=== PATIENT | female | born 1950 | race Caucasian/White ===

== ENCOUNTER 2023-04-01 14:58 | Outpatient (AMB) | payer MEDICARE, SELFPAY ==
[2023-04-01 15:02] VITALS: BP 120/70; PULSE 102; RESP 12; TEMP 36.4; O2SAT 99; BMI 28.5
--- NOTE | 2023-04-01 15:02 | MHC.PC.OV ---
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: No Accompanied by: Self / Same As Patient Allergies No Known Allergies Allergy (Verified 04/01/23 15:10) Tobacco use date assessed: 04/01/23 Fall risk assessment: No Falls in past year Last assessed Fall Risk: 04/01/23 Dental Screening Dental Screen Date: 04/01/23 Did you have a dental visit in the last 12 months?: Yes Did you have a dental problem in the last 6 months where you did not have access to dental care?: No Was dental information given to patient?: Patient has dentist HPI AIRLINE SECURITY REPRESENTATIVE/Requesting Physical HPI Details New patient Prior PCP: Dr Pinon Last office visit/CPE: 1 month. Acute issue(s): Needs a sleep study; has apneic events, Daytime sleepiness and snoring. Acid Reflux R Base of thumb pain & finkestein sign Positive Memory issues DM: Checks BS when she is worried about low BS PMHx: HTN, DM2 w/ Neuroathy, HLD, TIA. Eosinophilic granuloma L ribs. Diverticulitis 02/2022 with Cardiac arrest after meds. SurgHx: C-sect x 2, Hysterectomy. L Rib resection SocHx: Smoked x 25 yrs ago x 15 yrs. EtOH: None. MJ No. No other drugs PFSH Medical History (Updated 04/01/23 @ 16:23 by Devonte Ferreira MD) Plantar fasciitis Memory loss Hair loss Diabetic neuropathy Wrist pain Shoulder pain Surgical History (Updated 04/01/23 @ 15:29 by Sierra Pagan MA) H/O: hysterectomy Previous section Family History (Updated 04/01/23 @ 15:30 by Sierra Pagan MA) Father High blood pressure High cholesterol Diabetes Brother Tongue cancer Social History Housing: House Patient Tobacco Use Status: Former Tobacco user e-Cigarette/Vaping Use: Never Used service: No Current occupational status: employed and retired Cognitive needs: No Hearing needs: No Vision needs: No Questionnaire PHQ-9 Over the last 2 weeks, how often have you been bothered by any of the following problems? 1. Little interest or pleasure in doing things: several days 2. Feeling down, depressed, or hopeless: not at all 3. Trouble falling or staying asleep, or sleeping too much: several days 4. Feeling tired or having little energy: several days 5. Poor appetite or overeating: not at all 6. Feeling bad about yourself - or that you are a failure or have let yourself or your family down: not at all 7. Trouble concentrating on things, such as reading the newspaper or watching television: not at all 8. Moving or speaking so slowly that other people could have noticed. Or the opposite - being so fidgety or restless that you have been moving around a lot more than usual: not at all 9. Thoughts that you would be better off or of hurting yourself in some way: not at all Total score: 3 Depression Screening Interpretation: Negative Source: Developed by Drs. Jax Kaye, Edith Ahn, Mir Moura and colleagues, with an educational anibal from [employer]. Thrive Questionnaire Date Thrive assessed: 04/01/23 I am a: Patient What is your living situation today?: I have a steady place to live Within the past 12 months, did the food you bought not last and you didn't have the money to get more?: Never true Within the past 12 months, did you worry whether your food would run out before you got money to buy more?: Never true Do you have trouble paying for medicines?: No Do you have trouble getting transportation to medical appointments?: No Do you have trouble paying your heating and electricity bill?: No Do you have trouble taking care of your child, family member or friend?: No Do you have trouble with day-to-day activities such as bathing, preparing meals, shopping, managing finances, etc.?: No Are you currently unemployed and looking for a job?: No Are you interested in more education?: No Please select the resources that you would like help with: None Currently or been in a relationship where the following occur: no concerns reported AUDIT C Alcohol Use Questionnaire (AUDIT-C) 1. How often do you have a drink containing alcohol?: Never 3. How often do you have six or more drinks on one occasion?: Never Total Score: 0 ADAMA-7 AMB Questionnaire ADAMA-7 Date ADAMA - 7 assessed: 04/01/23 Feeling nervous, anxious, or on edge: 0 = Not at all Not being able to stop or control worryin = Not at all Worrying too much about different things: 1 = Several days Trouble relaxin = Several days Being so restless that it is hard to sit still: 0 = Not at all Becoming easily annoyed or irritable: 0 = Not at all Feeling afraid as if something awful might happen: 0 = Not at all Total ADAMA-7 score (0-4 normal; 5-9 mild; 10-14 moderate; 15-21 severe): 2 Source: Developed by Drs. Jax Kaye, Edith Ahn, Mir Moura and colleagues, with an educational anibal from [employer]. Review of Systems Const Denies chills, Reports fatigue, Denies fever(s), Denies headache(s) and Denies weakness ENT Denies dizziness and Denies headache(s) Card Denies chest pain, Denies lightheadedness, Denies dyspnea and Denies other (Palpitations) Resp Denies cough, Denies dyspnea, Denies wheezing and Denies other ( shortness of breath) Musc Denies numbness and Reports tingling Neuro Details: Memory changes. Lower extremity paresthesias and numbness Denies dizziness, Denies headache(s), Denies numbness, Reports tingling, Reports paresthesias and Denies weakness Psych Denies anxiety and Denies depression Endo Reports fatigue and Denies polyuria Aller/Immun Denies wheezing Physical exam (Primary Care) Vital Signs: Last Vital Signs Temp 97.6 F 04/01/23 15:02 Pulse 102 H 04/01/23 15:02 Resp 12 04/01/23 15:02 BP 120/70 04/01/23 15:02 Pulse Ox 99 04/01/23 15:02 Oxygen Delivery Method Room Air 04/01/23 15:02 BMI result Body Mass Index 28.5 Tobacco/Smoking Status: Tobacco use Status Tobacco use date assessed 04/01/23 04/01/23 15:25 Patient Tobacco Use Status Former Tobacco user 04/01/23 15:09 e-Cigarette/Vaping Use Never Used 04/01/23 15:25 PHQ-9: PHQ-9 Score PHQ-9: Total score 3 04/01/23 15:33 Depression Screening Interpretation: Negative Thrive Assessment: Date of Thrive Assessment Date Thrive assessed 04/01/23 04/01/23 15:33 Currently or been in a relationship where the following occur: no concerns reported Const General: no acute distress and well developed Nutritional Appearance: well nourished Orientation/consciousness: patient oriented x3 HENMT Head: Yes normocephalic and Yes atraumatic Eyes General: appearance normal, both eyes and all related structures Pupils: Equal, round and reactive pupils present EOM: EOMs intact bilaterally Resp Effort & Inspection: normal respiratory effort Auscultation: clear to auscultation bilaterally Cardio Rate: regular rate Rhythm: regular rhythm Heart sounds: S1 normal heart sound present, S2 normal heart sound present, no gallops, no murmurs and no rubs Neuro Other: Decreased sensation of feet ankles and lower legs General: patient oriented x3 and gait normal Cranial nerves: Yes Equal, round and reactive pupils present Extrem Other: Right wrist and forearm: Positive Petros sign Psych Affect: normal affect Assessment and Plan Assessment & Plan (1) Essential hypertension: Code(s): I10 - Essential (primary) hypertension Plan: Blood pressure is controlled. Goal is less than 130/80 for patient with history of TIA Continue low-dose of lisinopril (2) Hyperlipidemia: Code(s): E78.5 - Hyperlipidemia, unspecified Plan: She is on atorvastatin and has a history of TIA Check lipids (3) Diabetes mellitus with neuropathy: Code(s): E11.40 - Type 2 diabetes mellitus with diabetic neuropathy, unspecified Plan: Diabetes and patient notes neuropathy She says her last A1c about a month ago was 7.0. Advised her to check her blood sugars in the mornings. We can follow-up on this at her next visit. Patient notes that she eats many carb foods such as bread and pasta. We can address this further at her next visit in she will likely benefit from a referral to the nurse navigator for diabetic teaching. (4) TIA (transient ischemic attack): Code(s): G45.9 - Transient cerebral ischemic attack, unspecified Plan: Continue aspirin and atorvastatin Continue blood pressure control and diabetes control. (5) Memory problem: Code(s): R41.3 - Other amnesia Plan: Has seen neuropsychiatry. They recommended A sleep study which is ordered. She has also had a history of TIA and may have some for vascular changes as well. Continue atorvastatin and aspirin. If worsening will check head CT or MRI. (6) Chronic GERD: Code(s): K21.9 - Gastro-esophageal reflux disease without esophagitis Plan: Trial omeprazole (7) De Quervain's tenosynovitis, right: Code(s): M65.4 - Radial styloid tenosynovitis [de Quervain] Plan: Aspercreme and ice/heat If not improving will refer for injection therapy Orders: Orders Comprehensive [place]. Panel Fast Today Z00.00 - Encounter for general adult medical examination without abnormal findings Lipid Panel Today Z00.00 - Encounter for general adult medical examination without abnormal findings Microalbumin, Random (w Creat) Today I10 - Essential (primary) hypertension UA and rflx microscopic Today Z00.00 - Encounter for general adult medical examination without abnormal findings Vitamin D 25-OH Total Today E55.9 - Vitamin D deficiency, unspecified Complete Blood Count Auto Diff Today Z00.00 - Encounter for general adult medical examination without abnormal findings TSH reflex Free T4 Today Z00.00 - Encounter for general adult medical examination without abnormal findings Referrals Sleep Medicine Referral G47.30 - Sleep apnea, unspecified Coding Level of Care Code New Pt Level 4 (48327) Diagnoses Essential hypertension I10 Hyperlipidemia E78.5 Diabetes mellitus with neuropathy E11.40 TIA (transient ischemic attack) G45.9 Memory problem R41.3 Chronic GERD K21.9 De Quervain's tenosynovitis, right M65.4
== END 2023-04-01 16:19 | disposition home or self-care (01) ==
PROVIDERS: Visit Provider Family Medicine
DX: I10 Essential (primary) hypertension (principal); E11.40 Type 2 diabetes mellitus with diabetic neuropathy, unspecified; K21.9 Gastro-esophageal reflux disease without esophagitis; E78.5 Hyperlipidemia, unspecified; G45.9 Transient cerebral ischemic attack, unspecified; R41.3 Other amnesia; M65.4 Radial styloid tenosynovitis [de Quervain]
CPT/HCPCS: 99214

== ENCOUNTER 2023-06-10 09:53 | Outpatient (AMB) | payer MEDICARE, SELFPAY ==
[2023-06-10 10:01] VITALS: BP 120/76; PULSE 100; O2SAT 97; BMI 28.3
--- NOTE | 2023-06-10 10:01 | MHC.OFFVIS ---
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 Allergies No Known Allergies Allergy (Verified 06/10/23 10:04) HPI HPI Comments History of Present Illness Details 73 y/o female patient presents for new in-person visit for sleep consultation. Pt reports difficulty falling asleep and staying sleep. She tried Zzzquil and melatonin, but not really helpful to have good night sleep. She still fall asleep 3-4 am and wakes up 10 am. She snores, wakes up gasping, and has disrupted sleep with daytime sleepiness. Sleep questionnaire: Have you ever been diagnosed with a sleep disorder? No. Have you ever had a sleep study in the past? No. Have you ever been treated for a sleep disorder? No. Do you take medications for a sleep disorder? Diego, tried melatonin but did not help. Do you snore? Yes. Do you wake up gasping at night? Yes. Do you have episodes of apneas? Yes. If yes, are they witnessed? Yes, her . Do you have episodes of nocturnal chest pain or dyspnea? No. Do you have difficulty initiating sleep? Yes. Do you have difficulty maintaining sleep? Yes. Do you wake up tired? Yes. Do you have headaches upon awakening? No. Do you wake up with dry mouth or throat? Yes. Do you have GERD? Yes. Do you have nocturia? Yes. Do you have nocturnal leg cramps? Yes. Do you have symptoms of restless legs? No. Do you act out your dreams? No. Sleep hygiene questionnaire: What is your usual sleep routine? Usual bedtime is at 10-10:30 am but can fall asleep at 3-4 am; Usual wake up time is at 10 am. Do you take naps? Yes, couple of times a week. Is your sleep environment cool, dark, and quiet? Yes. Do you exercise? No. Do you take caffeine or other stimulants? Tea sometimes. Do you use electronics in bed? No. What is your work schedule? N/A. Hypersomnolence questionnaire: Do you have daytime tiredness or fatigue? Yes. Do you easily fall asleep when inactive? Yes. Have you ever had episodes of sudden weakness? No. Have you ever had episodes of sudden weakness associated with strong emotions? No. PFSH Medical History Plantar fasciitis Memory loss Hair loss Diabetic neuropathy Wrist pain Shoulder pain Surgical History H/O: hysterectomy Previous section Family History Father High blood pressure High cholesterol Diabetes Brother Tongue cancer Social History (Updated 06/10/23 @ 10:06 by Jolene Hawkins MA) Housing: House Alcohol intake: never Patient Tobacco Use Status: Former Tobacco user e-Cigarette/Vaping Use: Never Used service: No Current occupational status: employed and retired Cognitive needs: No Hearing needs: No Vision needs: No Review of Systems Const All systems reviewed & are unremarkable except as noted in HPI and below ENT Reports Normal hearing present Neuro Reports Normal hearing present and Reports Abnormal speech present Physical Exam Vital Signs: Last Vital Signs Pulse 100 06/10/23 10:01 BP 120/76 06/10/23 10:01 Pulse Ox 97 06/10/23 10:01 Oxygen Delivery Method Room Air 06/10/23 10:01 BMI result Body Mass Index 28.3 Const General: cooperative Nutritional Appearance: overweight Orientation/consciousness: patient oriented x3 Neck Neck: Yes full ROM and Yes supple Resp Effort & Inspection: normal respiratory effort and able to speak in complete sentences Neuro General: patient oriented x3 and moves all extremities Cranial nerves: Yes Bilaterally intact EOM present, Yes Normal facial strength present, Yes Midline tongue present, Yes Symmetric palate elevation present, Yes Normal hearing present, Yes Ability to bilaterally rotate head present and Yes Ability to bilaterally elevate shoulders present Cognition (Neuro): normal cognition Speech: Abnormal speech present Gait exam (Neuro): Normal gait present Motor exam (neuro): 5/5 motor strength present throughout, Pronator motor function not present and no tremor noted Psych Appearance: grossly normal Mental Status: mental status grossly normal Speech and movement: Normal speech and movement present Affect: normal affect Attitude: cooperative Assessment & Plan Assessment & Plan (1) Sleep apnea: Code(s): G47.30 - Sleep apnea, unspecified (2) Daytime sleepiness: Code(s): R40.0 - Somnolence Plan Pt is advised to undergo home sleep study to assess for sleep apnea. Will f/u with pt after study to discuss results and appropriate treatment options. Sleep hygiene education provided. Pt to call with any worsening concerns or questions. Orders: Orders RT home sleep study Today G45.9 - Transient cerebral ischemic attack, unspecified, G47.30 - Sleep apnea, unspecified Coding Level of Care Code New Pt Level 3 (13605) Diagnoses Sleep apnea G47.30 Daytime sleepiness R40.0
== END 2023-06-10 10:31 | disposition home or self-care (01) ==
PROVIDERS: PCP Family Medicine; Visit Provider Nurse Practitioner Family
DX: G47.30 Sleep apnea, unspecified (principal); R40.0 Somnolence
CPT/HCPCS: 99203

== ENCOUNTER → 2023-06-10 09:53 | Outpatient (BNVA) | payer MEDICARE, SELFPAY | PROVIDERS: PCP Family Medicine; Visit Provider Nurse Practitioner Family | DX: G47.30 Sleep apnea, unspecified (principal); R40.0 Somnolence | CPT/HCPCS: 99202 ==

== ENCOUNTER 2023-06-20 10:38 | Outpatient (REF) | payer MEDICARE, SELFPAY ==
[2023-06-20 11:42] LABS: MANUAL DIFF FLAG NO
[2023-06-20 12:06] LABS: Basophils Percent Auto 0.5 % (0-2); Eosinophils Absolute Auto 0.3 X10*3/uL (0.0-0.4); Eosinophils Percent Auto 3.2 % (0-4); Hematocrit 42.3 % (37.0-47.0); Hemoglobin 13.9 g/dl (12.0-16.0); Imm Gran Abs Auto 0.02 X10*3/uL (0.00-0.03); Imm Gran Pct Auto 0.3 % (0.0-0.4); Lymphocytes Absolute Auto 1.9 X10*3/uL (1.2-4.9); Lymphocytes Percent Auto 24.4 % (20-40); Mean Corpuscular HGB Conc 32.9 g/dl (31.0-35.0); Mean Corpuscular Hemoglobin 28.9 pg (27.0-33.0); Mean Corpuscular Volume 87.9 fL (80.0-98.0); Mean Platelet Volume 12.1 fL (9.4-12.3); Monocytes Absolute Auto 0.6 X10*3/uL (0.1-1.2); Monocytes Percent Auto 8.1 % (2-11); Neutrophils Percent Auto 63.5 % (45-73); Platelet Count 292 X10*3/uL (160-400); Red Blood Count 4.81 X10*6/uL (4.20-5.50); Red Cell Distribution Width 12.4 % (11.0-16.0); White Blood Count 7.9 X10*3/uL (4.8-10.8)
[2023-06-20 12:31] LABS: Alanine Aminotransferase 29 U/L (0-31); Albumin Level 4.1 g/dL (3.5-5.0); Alkaline Phosphatase 100 U/L (39-117); Anion Gap 9 (12-20); Aspartate Amino Transferase 23 U/L (5-31); Blood Urea Nitrogen 14 mg/dL (9-16); Calcium 9.5 mg/dL (8.4-10.2); Carbon Dioxide 30 mmol/L (22-29); Chloride 101 mmol/L (96-108); Cholesterol 173 mg/dL (<200); Estimated Glomerular Filt Rate > 60; Glucose Fasting 191 mg/dL (60-99); HDL Cholesterol 63 mg/dL (>40); LDL Cholesterol Calculated 79 mg/dL (<100); Potassium 4.1 mmol/L (3.3-5.1); Sodium 136 mmol/L (135-145); Total Protein 7.1 g/dL (6.5-8.0); Triglycerides 155 mg/dL (<150)
[2023-06-20 12:49] LABS: TSH reflex Free T4 1.54 uIU/mL (0.32-4.0); Vitamin D 25-OH Total 30.9 ng/mL (>30)
== END 2023-06-20 10:39 | disposition home or self-care (01) ==
LOC: HO.WFDLDS 10:38
PROVIDERS: Visit Provider Family Medicine
DX: Z00.00 Encounter for general adult medical examination without abnormal findings (principal); E55.9 Vitamin D deficiency, unspecified
CPT/HCPCS: 36415; 80053; 80061; 82306; 84443; 85025

== ENCOUNTER 2023-06-26 10:51 | Outpatient (AMB) | payer MEDICARE, SELFPAY ==
[2023-06-26 11:31] VITALS: BP 118/72; PULSE 85; O2SAT 96; BMI 28.5
--- NOTE | 2023-06-26 11:31 | A.OFFPC_ITS ---
Vital Signs 06/26/23 11:31 Height 5 ft 5 in Weight 171 lb BMI 28.5 BP 118/72 Blood Pressure Location Lt brachial Position Sitting Pulse 85 Pulse Source Pulse Oximeter Pulse Oximetry (%) 96 Oxygen Delivery Method Room Air Intake Visit Reasons: Extended exam with f/u labs and health maint. Intake Note: Patient is here for extended exam, and follow up on labs. Allergies No Known Allergies Allergy (Verified 06/26/23 11:32) Tobacco use date assessed: 06/26/23 Fall risk assessment: No Falls in past year Last assessed Fall Risk: 06/26/23 HPI Extended exam with f/u labs and health maint. HPI Details 73 y/o female presents for an extended e xam with f/u labs and health maintenance. Labs were drawn 06/20/23. Reviewed labs with pt. Elevated fasting glucose of 191. She is on metformin 500mg b.i.d. A1c today 06/26/23 7.3%. She states she does not feel like she can make much changes in her diet. Triglycerides 155. TC 173. LDL 79. HDL 63. Pt reports ongoing complaints of hair loss. She reports last colonoscopy 5-7 years ago. She notes last bone density test more than 2 years ago. [facility] Medical History Plantar fasciitis Memory loss Hair loss Diabetic neuropathy Wrist pain Shoulder pain Surgical History H/O: hysterectomy Previous section Family History Father High blood pressure High cholesterol Diabetes Brother Tongue cancer Social History (Updated 06/10/23 @ 10:06 by Jolene Hawkins MA) Housing: House Alcohol intake: never Patient Tobacco Use Status: Former Tobacco user e-Cigarette/Vaping Use: Never Used service: No Current occupational status: employed and retired Cognitive needs: No Hearing needs: No Vision needs: No Questionnaire Thrive Questionnaire Date Thrive assessed: 04/01/23 ADAMA-7 AMB Questionnaire ADAMA-7 Date ADAMA - 7 assessed: 04/01/23 Source: Developed by Drs. Jax Kaye, Edith Ahn, Mir Moura and colleagues, with an educational anibal from [employer] Review of Systems Const Denies chills, Denies fatigue, Denies fever(s), Denies headache(s) and Denies weakness Eyes Denies change in vision ENT Denies dizziness, Denies headache(s), Denies hearing loss, Denies nasal congestion, Denies sinus pain, Denies sinus pressure and Denies sore throat Card Denies chest pain, Denies lightheadedness, Denies dyspnea and Denies other (palpitations) Resp Denies cough, Denies dyspnea and Denies wheezing GI Denies abdominal pain, Denies melena, Denies hematochezia, Denies change in bowel habits, Denies dyspepsia and Denies nausea Denies hematuria and Denies dysuria Musc Denies abnormal gait, Denies myalgias, Denies arthralgias, Denies numbness and Denies tingling Skin/Breast Denies rash, Denies unusual bruising and Denies wounds Neuro Denies abnormal gait, Denies dizziness, Denies headache(s), Denies memory loss, Denies numbness, Denies Sensory deficit (Neuro), Denies tingling and Denies weakness Psych Denies anxiety, Denies depression and Denies memory loss Endo Denies cold intolerance, Denies fatigue, Denies heat intolerance, Denies polydipsia and Denies polyuria [place]/Lymph Denies easy bleeding and Denies easy bruising Aller/Immun Denies wheezing Physical exam (Primary Care) Vital Signs: Last Vital Signs Pulse 85 06/26/23 11:31 BP 118/72 06/26/23 11:31 Pulse Ox 96 06/26/23 11:31 Oxygen Delivery Method Room Air 06/26/23 11:31 BMI result Body Mass Index 28.5 Tobacco/Smoking Status: Tobacco use Status Tobacco use date assessed 06/26/23 06/26/23 11:34 Patient Tobacco Use Status Former Tobacco user 06/26/23 11:34 e-Cigarette/Vaping Use Never Used 06/26/23 11:34 Thrive Assessment: Date of Thrive Assessment Date Thrive assessed 04/01/23 06/26/23 11:34 Const General: no acute distress, well developed, alert and awake Nutritional Appearance: well nourished Orientation/consciousness: patient oriented x3 HENMT Head: Yes normocephalic and Yes atraumatic Ears: hearing grossly normal bilaterally and TM's normal bilaterally General nose exam: Normal external nose present and Normal nares present Mouth: Normal oral and palatal mucosa present and moist mucous membranes Teeth and gingiva: dentition normal Throat: Yes posterior oropharynx normal Eyes General: appearance normal, both eyes and all related structures Pupils: Equal, round and reactive pupils present and Pupil accommodation reflex normal EOM: EOMs intact bilaterally Neck Neck: Yes normal visual inspection, Yes no lymphadenopathy and Yes trachea midline Thyroid: Thyroid normal Carotids: no bruits Lymphatic: no lymphadenopathy noted Chest Chest palpation & inspection: normal inspection of the chest Resp Effort & Inspection: normal respiratory effort Auscultation: clear to auscultation bilaterally Cardio Rate: regular rate Rhythm: regular rhythm Heart sounds: S1 normal heart sound present, S2 normal heart sound present, no gallops, no murmurs and no rubs Bruits: no abdominal aortic bruits and no carotid bruits GI Palpation (GI): No Abdominal aortic bruit present, Soft to palpation, nontender, No hepatosplenomegaly present and No Rebound tenderness present Auscultation: normal bowel sounds General: Yes no CVA tenderness Back/Spine/Pelvis Back: no CVA tenderness Cervical Spine: cervical ROM normal and No Cervical spine tenderness Thoracic/Lumbar Spine: thoraco-lumbar ROM normal, No pain with thoraco-lumbar ROM, No thoracic spinal tenderness and No lumbar spinal tenderness Skin Lesions: no lesions Rashes: no rashes Trauma: no lacerations or abrasions Wounds: no wounds Nails: normal Neuro General: patient oriented x3 Cranial nerves: Yes Equal, round and reactive pupils present Cognition (Neuro): normal cognition Gait exam (Neuro): Normal gait present Motor exam (neuro): 5/5 motor strength present throughout Sensory Exam: No Sensory deficit (Neuro) Deep tendon reflexes (DTR's): Right patellar reflex intensity grade: 2+ and Left patellar reflex intensity grade: 2+ Extrem General: Yes normal to inspection and No edema Psych Appearance: grossly normal Affect: normal affect Attitude: cooperative Thought process: Normal thought process present Results AMB Hemoglobin A1c AMB Hemoglobin A1c 7.3 % Last Edit by Anastasiya Mcnamara CMA on 06/26/23 12:16 Assessment and Plan Assessment & Plan (1) Essential hypertension: Code(s): I10 - Essential (primary) hypertension Plan: Blood?pressure?is?controlled.??Goal?is?less?than?130/80.??History?TIA Continue?current?medication (2) Diabetes: Code(s): E11.9 - Type 2 diabetes mellitus without complications Plan: A1c?7.3%?which?is?suboptimal?control.??Goal?is?less?than?7.0% Will?increase?metformin?to?750?mg?a.m.?and?500?mg?p.m. (3) Hyperlipidemia: Code(s): E78.5 - Hyperlipidemia, unspecified Plan: LDL?cholesterol?79?which?is? 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 Follow-up?with?dermatology?as?recommended (5) Breast cancer screening by mammogram: Code(s): Z12.31 - Encounter for screening mammogram for malignant neoplasm of breast Plan: Mammogram?ordered (6) Screening for colon cancer: Code(s): Z12.11 - Encounter for screening for malignant neoplasm of colon Plan: Will?request?colonoscopy?report?and?advise?patient?when?she?is?due?for?follow-up (7) Screening for osteoporosis: Code(s): Z13.820 - Encounter for screening for osteoporosis Plan: Bone?density?test?ordered (8) Adult general medical exam: Code(s): Z00.00 - Encounter for general adult medical examination without abnormal findings Plan: 73-year-old?female?presents?for?an?extended?exam Encouraged?healthy?diet She?is?stable Orders: Orders MM tomosynthesis screening BI Today Z12.31 - Encounter for screening mammogram for malignant neoplasm of breast XR DEXA axial skeleton Today M81.0 - Age-related osteoporosis without current pathological fracture AMB Hemoglobin A1c Today Z13.9 - Encounter for screening, unspecified Medications: Changed From metformin 500 mg PO BID To metformin 750mg (1.5 tabs) AM and 500mg (1 tab) PM 225 tabs 3RF 90 days Coding Level of Care Code Est Pt Level 4 (84922) Diagnoses Essential hypertension I10 Diabetes E11.9 Hyperlipidemia E78.5 Hair loss L65.9 Breast cancer screening by mammogram Z12.31 Screening for colon cancer Z12.11 Screening for osteoporosis Z13.820 Adult general medical exam Z00.00
== END 2023-06-26 12:34 | disposition home or self-care (01) ==
PROVIDERS: PCP Family Medicine; Visit Provider Family Medicine
DX: I10 Essential (primary) hypertension (principal); E11.69 Type 2 diabetes mellitus with other specified complication; E78.5 Hyperlipidemia, unspecified; L65.9 Nonscarring hair loss, unspecified
CPT/HCPCS: 83036; 99214

== ENCOUNTER → 2023-07-24 07:15 | Outpatient (BNV) | payer MEDICARE, SELFPAY | PROVIDERS: Visit Provider Psychiatry & Neurology Neurology | DX: G47.33 Obstructive sleep apnea (adult) (pediatric) (principal) | CPT/HCPCS: 95806 ==

== ENCOUNTER → 2023-07-24 10:38 | Outpatient (REF) | payer MEDICARE, SELFPAY | LOC: HO.SL 10:38 | PROVIDERS: Visit Provider Nurse Practitioner Family | DX: G47.33 Obstructive sleep apnea (adult) (pediatric) (principal); G45.9 Transient cerebral ischemic attack, unspecified | CPT/HCPCS: 95806 ==

== ENCOUNTER 2023-08-14 12:41 | Outpatient (REF) | payer MEDICARE, SELFPAY ==
--- NOTE | ~2023-08-14 | MM_ITS ---
EXAMINATION: BONE DENSITOMETRY CLINICAL INDICATION: Age-related osteoporosis without current pathological fracture. COMPARISON: This is the patient's baseline examination. TECHNIQUE: Using a [employer] DXA System (software version: 13.1) manufactured by [employer], dual-energy x-ray absorptiometry was performed of the lumbar spine and left hip. The images are of good technical quality. Summary results are attached. FINDINGS: LEFT FEMUR, NECK: BMD 1.115 g/cm2, Z-score 2.1, T-score 0.6, normal. LEFT FEMUR, TOTAL: BMD 1.155 g/cm2, Z-score 2.5, T-score 1.2, normal. AP SPINE L1-L4: BMD 1.366 g/cm2, Z-score 2.9, T-score 1.6, normal. IDENTIFIED RISK FACTORS: Bilateral oophorectomy, dementia, early menopause, hysterectomy, secondary osteoporosis. HISTORY OF FRACTURE: None listed. MEDICATIONS: Multivitamin. MM/XR DEXA axial skeleton IMPRESSION: 1. DIAGNOSIS: Normal bone density based on the lowest T-score value of 0.6 in the femoral neck applying World Health Organization criteria. 2. 10-YEAR FRACTURE RISK PREDICTION, FRAX: According to the guidelines, FRAX calculation should only be performed on patients in the osteopenia bone density category. Therefore, FRAX was not performed on this patient. 3. Treatment Recommendations: NOF guidelines recommend consideration for treatment in postmenopausal women and men age 50 and older presenting with the following: -A hip or vertebral (clinical or morphometric) fracture. -T-score less than or equal to -2.5 at the femoral neck or spine after appropriate evaluation to exclude secondary causes. -Low bone mass at the hip or spine and a 10-year fracture probability by FRAX of greater than or equal to 3% for hip fracture or greater than or equal to 20% for major osteoporotic fracture based on the [place] adapted WHO algorithm. 4. Other Recommendations: All treatment decisions require clinical judgment and consideration of individual patient factors, including patient preferences, comorbidities, previous drug use, risk factors not captured in the FRAX model (e.g. frailty, falls, vitamin D deficiency, increased bone turnover, interval significant decline in bone density) and possible under or overestimation of fracture risk by FRAX. FUTURE SCAN RECOMMENDATION: People with diagnosed cases of osteoporosis or at high risk for fracture should have regular bone mineral density tests. For patients eligible for Medicare, routine testing is allowed once every 2 years. The testing frequency can be increased to one year for patients who have rapidly progressing disease, those who are receiving or discontinuing medical therapy to restore bone mass, or have additional risk factors.
== END 2023-08-14 12:42 | disposition home or self-care (01) ==
LOC: HO.MAMMO 12:41
PROVIDERS: PCP Family Medicine; Visit Provider Family Medicine
DX: Z12.31 Encounter for screening mammogram for malignant neoplasm of breast (principal); Z13.820 Encounter for screening for osteoporosis; Z78.0 Asymptomatic menopausal state; M81.0 Age-related osteoporosis without current pathological fracture
CPT/HCPCS: 77063; 77067; 77080

== ENCOUNTER → 2023-08-14 13:00 | Outpatient (BNV) | payer MEDICARE, SELFPAY | PROVIDERS: PCP Family Medicine; Visit Provider Radiology Diagnostic Radiology | DX: Z12.31 Encounter for screening mammogram for malignant neoplasm of breast (principal) | CPT/HCPCS: 77063; 77067 ==

== ENCOUNTER → 2023-09-10 20:30 | Outpatient (REF) | payer MEDICARE, SELFPAY | LOC: HO.SL 20:30 | PROVIDERS: PCP Family Medicine; Visit Provider Nurse Practitioner Family | DX: G47.33 Obstructive sleep apnea (adult) (pediatric) (principal) | CPT/HCPCS: 95811 ==

== ENCOUNTER → 2023-09-10 21:08 | Outpatient (BNV) | payer MEDICARE, SELFPAY | PROVIDERS: PCP Family Medicine; Visit Provider Psychiatry & Neurology Neurology | DX: G47.33 Obstructive sleep apnea (adult) (pediatric) (principal) | CPT/HCPCS: 95811 ==

== ENCOUNTER 2023-10-09 09:37 | Outpatient (AMB) | payer MEDICARE, SELFPAY ==
[2023-10-09 09:42] VITALS: BP 124/72; PULSE 74; O2SAT 99; BMI 29.2
--- NOTE | 2023-10-09 09:42 | A.OFFPC_ITS ---
Vital Signs 10/09/23 09:42 Height 5 ft 5 in Weight 175 lb 6 oz BMI 29.2 BP 124/72 Blood Pressure Location Lt brachial Position Sitting Pulse 74 Pulse Oximetry (%) 99 Oxygen Delivery Method Room Air Intake Visit Reasons: f/u diabetes Intake Note: Patient is here to follow up on diabetes today. Patient would like to talk about getting the dexcom system today. Allergies No Known Allergies Allergy (Verified 10/09/23 09:45) Medication List - Last Reconciled 10/09/23 by Deovnte Ferreira MD aspirin 81 mg PO DAILY atorvastatin 40 mg PO BEDTIME 90 days duloxetine 30 mg PO DAILY lisinopril 2.5 mg PO DAILY metformin 750mg (1.5 tabs) AM and 500mg (1 tab) PM 90 days minoxidil mg PO multivitamin 1 tab PO DAILY dhcitrgqzbvf-cahcnmja-epdbif 1 tab PO DAILY zinc gluconate 50 mg PO DAILY Tobacco use date assessed: 10/09/23 Fall risk assessment: No Falls in past year Last assessed Fall Risk: 10/09/23 Dental Screening Dental Screen Date: 10/09/23 Did you have a dental visit in the last 12 months?: Yes Did you have a dental problem in the last 6 months where you did not have access to dental care?: No Was dental information given to patient?: Patient has dentist HPI f/u diabetes HPI Details 73 y/o female presents to f/u diabetes. Last A1c 06/26/23 7.3%. Had increased her metformin last office visit. A1c today 10/09/23 is 8.0%. Bone density test 08/14/23 was normal. Mammogram 08/14/23 showed no mammographic evidence of malignancy. [facility] Medical History Plantar fasciitis Memory loss Hair loss Diabetic neuropathy Wrist pain Shoulder pain Surgical History H/O: hysterectomy Previous section Family History Father High blood pressure High cholesterol Diabetes Brother Tongue cancer Social History Housing: House Alcohol intake: never Patient Tobacco Use Status: Former Tobacco user e-Cigarette/Vaping Use: Never Used service: No Current occupational status: retired Cognitive needs: No Hearing needs: No Vision needs: No Questionnaire PHQ-9 Over the last 2 weeks, how often have you been bothered by any of the following problems? 1. Little interest or pleasure in doing things: not at all 2. Feeling down, depressed, or hopeless: not at all 3. Trouble falling or staying asleep, or sleeping too much: not at all 4. Feeling tired or having little energy: not at all 5. Poor appetite or overeating: not at all 6. Feeling bad about yourself - or that you are a failure or have let yourself or your family down: not at all 7. Trouble concentrating on things, such as reading the newspaper or watching television: not at all 8. Moving or speaking so slowly that other people could have noticed. Or the opposite - being so fidgety or restless that you have been moving around a lot more than usual: not at all 9. Thoughts that you would be better off or of hurting yourself in some way: not at all Total score: 0 Depression Screening Interpretation: Negative Depression Screening Done: Yes 09447 - PHQ-9 Billing: Yes Source: Developed by Drs. Jax Kaye, Edith Ahn, Mir Moura and colleagues, with an educational anibal from [employer]. Thrive Questionnaire Date Thrive assessed: 10/09/23 I am a: Patient What is your living situation today?: I have a steady place to live Within the past 12 months, did the food you bought not last and you didn't have the money to get more?: Never true Within the past 12 months, did you worry whether your food would run out before you got money to buy more?: Never true Do you have trouble paying for medicines?: No Do you have trouble getting transportation to medical appointments?: No Do you have trouble paying your heating and electricity bill?: No Do you have trouble taking care of your child, family member or friend?: No Do you have trouble with day-to-day activities such as bathing, preparing meals, shopping, managing finances, etc.?: No Are you currently unemployed and looking for a job?: No Are you interested in more education?: No THRIVE Score: 0 AUDIT C Alcohol Use Questionnaire (AUDIT-C) 1. How often do you have a drink containing alcohol?: Never 3. How often do you have six or more drinks on one occasion?: Never Total Score: 0 ADAMA-7 AMB Questionnaire ADAMA-7 Date ADAMA - 7 assessed: 10/09/23 Feeling nervous, anxious, or on edge: 0 = Not at all Not being able to stop or control worryin = Not at all Worrying too much about different things: 0 = Not at all Trouble relaxin = Not at all Being so restless that it is hard to sit still: 0 = Not at all Becoming easily annoyed or irritable: 1 = Several days Feeling afraid as if something awful might happen: 0 = Not at all Total ADAMA-7 score (0-4 normal; 5-9 mild; 10-14 moderate; 15-21 severe): 1 Source: Developed by Drs. Jax Kaye, Edith Ahn, Mir Moura and colleagues, with an educational anibal from [employer]. ADAMA-7 Assessment Billing ADAMA-7 Assessment Tool: ADAMA-7 Assessment 40856 Review of Systems Const Denies fatigue, Denies headache(s), Reports malaise and Denies weakness ENT Denies dizziness and Denies headache(s) Card Denies chest pain, Denies lightheadedness, Denies dyspnea and Denies other (Palpitations) Resp Denies cough, Denies dyspnea, Denies wheezing and Denies other ( shortness of breath) Musc Denies numbness and Denies tingling Neuro Denies dizziness, Denies headache(s), Denies numbness, Denies tingling, Denies paresthesias and Denies weakness Psych Denies anxiety and Denies depression Endo Denies fatigue Aller/Immun Denies wheezing Physical exam (Primary Care) Vital Signs: Last Vital Signs Pulse 74 10/09/23 09:42 BP 124/72 10/09/23 09:42 Pulse Ox 99 10/09/23 09:42 Oxygen Delivery Method Room Air 10/09/23 09:42 BMI result Body Mass Index 29.2 Tobacco/Smoking Status: Tobacco use Status Tobacco use date assessed 10/09/23 10/09/23 09:47 Patient Tobacco Use Status Former Tobacco user 10/09/23 09:47 e-Cigarette/Vaping Use Never Used 10/09/23 09:47 PHQ-9: PHQ-9 Score PHQ-9: Total score 0 10/09/23 09:54 Depression Screening Interpretation: Negative Thrive Assessment: Date of Thrive Assessment Date Thrive assessed 10/09/23 10/09/23 09:54 Const General: no acute distress and well developed Nutritional Appearance: well nourished Orientation/consciousness: patient oriented x3 HENMT Head: Yes normocephalic and Yes atraumatic Eyes General: appearance normal, both eyes and all related structures Pupils: Equal, round and reactive pupils present EOM: EOMs intact bilaterally Resp Effort & Inspection: normal respiratory effort Auscultation: clear to auscultation bilaterally Cardio Rate: regular rate Rhythm: regular rhythm Heart sounds: S1 normal heart sound present, S2 normal heart sound present, no gallops, no murmurs and no rubs Neuro General: patient oriented x3 and gait normal Cranial nerves: Yes Equal, round and reactive pupils present Psych Affect: normal affect Results AMB Hemoglobin A1c AMB Hemoglobin A1c 8.0 % Last Edit by Anastasiya Mcnamara CMA on 10/09/23 10:05 Assessment and Plan Assessment & Plan (1) Diabetes: Code(s): E11.9 - Type 2 diabetes mellitus without complications Plan: A1c?today?has?increased?again?to?8.0%.??Goal?is?less?than?7.0% Had?increased?metformin?but?patient?was?unable?to?tolerate?this?so?she?is?still? taking?500?mg?b.i.d.. Will?add?glipizide?5?mg?daily?which?she?will?take?in?the?daytime Will?order?Dexcom?which?patient?says?she?is?already?discussed?with?her?insurance ?company. (2) Breast cancer screening by mammogram: Code(s): Z12.31 - Encounter for screening mammogram for malignant neoplasm of breast Plan: Mammogram?showed?no?evidence?of?malignancy Will?continue?annual?screening (3) Screening for osteoporosis: Code(s): Z13.820 - Encounter for screening for osteoporosis Plan: Bone?density?test?was?normal Orders: Orders AMB Hemoglobin A1c Today Z13.9 - Encounter for screening, unspecified Medications: New glipizide ER 5 mg PO DAILY 90 tabs 2RF 90 days Changed From metformin 750mg (1.5 tabs) AM and 500mg (1 tab) PM 90 days 225 tabs 3RF To metformin 500 mg PO BID 180 tabs 3RF 90 days Coding Level of Care Code Est Pt Level 4 (06909) Diagnoses Diabetes E11.9 Breast cancer screening by mammogram Z12.31 Screening for osteoporosis Z13.820 Additional Codes ADAMA-7 Assessment Billing - ADAMA-7 Assessment Tool: ADAMA-7 Assessment 89758 ([id number])
== END 2023-10-09 10:46 | disposition home or self-care (01) ==
PROVIDERS: PCP Family Medicine; Visit Provider Family Medicine
DX: E11.9 Type 2 diabetes mellitus without complications (principal); Z12.31 Encounter for screening mammogram for malignant neoplasm of breast; Z13.820 Encounter for screening for osteoporosis
CPT/HCPCS: 83036; 99214

== ENCOUNTER 2023-11-01 09:30 | Outpatient (AMB) | payer MEDICARE, SELFPAY ==
--- NOTE | 2023-11-01 09:31 | MHC.OFFVIS ---
Vital Signs 11/01/23 09:40 Height 5 ft 5 in Weight 175 lb 6 oz BMI 29.2 BP 120/60 Blood Pressure Location Rt brachial Position Sitting Pulse 76 Pulse Source Pulse Oximeter Pulse Oximetry (%) 96 Oxygen Delivery Method Room Air Intake Visit Reasons: f/u- DAVID - Conf w/address/ LVM Intake Note: Patient request for DAVID f/u. Would like to try a full mask Allergies No Known Allergies Allergy (Verified 11/01/23 09:38) HPI Comments Details: 73 y/o female patient presents for follow up of sleep study. The home sleep study result was significant for a severe degree of sleep apnea. The AHI was 33/hr and oxygen lisa was 74%. Pt underwent titration study and her breathing and oxygenation stabilized on CPAP at 8cmH2O. The CPAP compliance and therapy response (08/02/23-10/30/23) reviewed. She is on CPAP at 8cmH2O. The usage days 31% and the average usage hours 8 hrs 30 min. The residual AHI was 4.2/hr. Pt reports sleeps well, rested and daytime sleepiness has improved a lot. However, the nasal pillow irritate her nose and skin. She also sleeps with her mouth open, wants to try full face mask. [facility] Medical History Plantar fasciitis Memory loss Hair loss Diabetic neuropathy Wrist pain Shoulder pain Surgical History H/O: hysterectomy Previous section Family History Father High blood pressure High cholesterol Diabetes Brother Tongue cancer Social History Housing: House Alcohol intake: never Patient Tobacco Use Status: Former Tobacco user e-Cigarette/Vaping Use: Never Used service: No Current occupational status: retired Cognitive needs: No Hearing needs: No Vision needs: No Review of Systems Const All systems reviewed & are unremarkable except as noted in HPI and below ENT Reports Normal hearing present Neuro Reports Normal hearing present and Reports Abnormal speech present Physical Exam Vital Signs: Last Vital Signs Pulse 76 11/01/23 09:40 BP 120/60 11/01/23 09:40 Pulse Ox 96 11/01/23 09:40 Oxygen Delivery Method Room Air 11/01/23 09:40 BMI result Body Mass Index 29.2 Const General: cooperative Nutritional Appearance: overweight Orientation/consciousness: patient oriented x3 Neck Neck: Yes full ROM and Yes supple Resp Effort & Inspection: normal respiratory effort and able to speak in complete sentences Neuro General: patient oriented x3 and moves all extremities Cranial nerves: Yes Bilaterally intact EOM present, Yes Normal facial strength present, Yes Midline tongue present, Yes Symmetric palate elevation present, Yes Normal hearing present, Yes Ability to bilaterally rotate head present and Yes Ability to bilaterally elevate shoulders present Cognition (Neuro): normal cognition Speech: Abnormal speech present Gait exam (Neuro): Normal gait present Motor exam (neuro): 5/5 motor strength present throughout, Pronator motor function not present and no tremor noted Psych Appearance: grossly normal Mental Status: mental status grossly normal Speech and movement: Normal speech and movement present Affect: normal affect Attitude: cooperative Assessment & Plan Assessment & Plan (1) DAVID (obstructive sleep apnea): Comment: severe degree of sleep apnea. The AHI was 33/hr and oxygen lisa was 74%. Code(s): G47.33 - Obstructive sleep apnea (adult) (pediatric) Category: Medical Plan New mask fitting prescription with [facility] walk in information given to patient to try different masks. Continue to use CPAP at 8cmH2O as patient experiences good clinical effects, sleep quality and daytime sleepiness has improved. Stressed compliance, use CPAP nightly and more than 4 hrs. Coding Level of Care Code Est Pt Level 3 (34675) Diagnoses DAVID (obstructive sleep apnea) G47.33
[2023-11-01 09:40] VITALS: BP 120/60; PULSE 76; O2SAT 96; BMI 29.2
== END 2023-11-01 09:55 | disposition home or self-care (01) ==
PROVIDERS: PCP Family Medicine; Visit Provider Nurse Practitioner Family
DX: G47.33 Obstructive sleep apnea (adult) (pediatric) (principal)
CPT/HCPCS: 99213

== ENCOUNTER → 2023-11-01 09:30 | Outpatient (BNVA) | payer MEDICARE, SELFPAY | PROVIDERS: PCP Family Medicine; Visit Provider Nurse Practitioner Family | DX: G47.33 Obstructive sleep apnea (adult) (pediatric) (principal); Z99.89 Dependence on other enabling machines and devices | CPT/HCPCS: 99212 ==

== ENCOUNTER 2023-11-08 12:10 | Outpatient (AMB) | payer MEDICARE, SELFPAY ==
[2023-11-08 12:13] VITALS: BP 112/62; PULSE 87; O2SAT 97; BMI 29.3
--- NOTE | 2023-11-08 12:13 | A.OFFPC_ITS ---
Vital Signs 11/08/23 12:13 Height 5 ft 5 in Weight 176 lb BMI 29.3 BP 112/62 Blood Pressure Location Rt brachial Pulse 87 Pulse Source Pulse Oximeter Pulse Oximetry (%) 97 Oxygen Delivery Method Room Air Intake Visit Reasons: varying blood sugar Intake Note: Patient is here with spikes and lows of blood sugar, states she stated it was 11:30 it was 305, now it's at 169. The dexcom system dropped 3 points as we were talking, a blood sugar with our Freestyle Lite system showed a reading of 184, and the Dexcom was reading 148 at the same time. Allergies No Known Allergies Allergy (Verified 11/08/23 12:15) Tobacco use date assessed: 11/08/23 Dental Screening Dental Screen Date: 10/09/23 HPI varying blood sugar HPI Details Patient?is?having?widely?fl uctuating?blood?sugars.??She?has?had?a?couple?blood?sugars?as?low?as?40?during?h er?afternoons.??No?low?blood?sugars?at?night. She?is?taking?her?medications?as?prescribed. However,?she?is?not?eating?r egular?meals.??She?generally?wakes?up?around?11?in?the?morning?and?eats?a?meal. Then?she?does?not?always?eat?until?about?05:00?o'clock?in?the?evening. When?she?has?low?blood?sugars?she?eats?marshmallow?fluff. Also?does?this?if?blood?sugars?swing?widely?from?300s?to?100s. Patient?says?she?really?does?not?understand?what?she?should?be?eating.??Reviewed ?common?carbohydrates?such?as?bread?cereal?r ice?pasta?and?potatoes?and?she?says?she?eats?many?of?these?often. She?notes?tingling?and?burning?in?her?feet.??She?is?tried?gabapentin?in?the?past ?but?she?did?not?tolerate?this [facility] Medical History Plantar fasciitis Memory loss Hair loss Diabetic neuropathy Wrist pain Shoulder pain Surgical History H/O: hysterectomy Previous section Family History Father High blood pressure High cholesterol Diabetes Brother Tongue cancer Social History Housing: House Alcohol intake: never Patient Tobacco Use Status: Former Tobacco user e-Cigarette/Vaping Use: Never Used service: No Current occupational status: retired Cognitive needs: No Hearing needs: No Vision needs: No Questionnaire Thrive Questionnaire Date Thrive assessed: 10/09/23 ADAMA-7 AMB Questionnaire ADAMA-7 Date ADAMA - 7 assessed: 10/09/23 Source: Developed by Drs. Jax Kaye, Edith Ahn, Mir Moura and colleagues, with an educational anibal from [employer]. Review of Systems Const Denies chills, Denies fatigue, Denies fever(s), Denies headache(s) and Denies weakness ENT Denies dizziness and Denies headache(s) Card Denies chest pain, Denies lightheadedness, Denies dyspnea and Denies other (Palpitations) Resp Denies cough, Denies dyspnea, Denies wheezing and Denies other ( shortness of breath) Musc Denies numbness and Denies tingling Neuro Details: Acknowledges tingling/burning on her feet Denies dizziness, Denies headache(s), Denies numbness, Denies tingling, Denies paresthesias and Denies weakness Psych Denies anxiety and Denies depression Endo Denies fatigue Aller/Immun Denies wheezing Physical exam (Primary Care) Vital Signs: Last Vital Signs Pulse 87 11/08/23 12:13 BP 112/62 11/08/23 12:13 Pulse Ox 97 11/08/23 12:13 Oxygen Delivery Method Room Air 11/08/23 12:13 BMI result Body Mass Index 29.3 Tobacco/Smoking Status: Tobacco use Status Tobacco use date assessed 11/08/23 11/08/23 12:17 Patient Tobacco Use Status Former Tobacco user 11/08/23 12:17 e-Cigarette/Vaping Use Never Used 11/08/23 12:17 Thrive Assessment: Date of Thrive Assessment Date Thrive assessed 10/09/23 11/08/23 12:17 Const General: no acute distress and well developed Nutritional Appearance: well nourished Orientation/consciousness: patient oriented x3 [facility] Head: Yes normocephalic and Yes atraumatic Eyes General: appearance normal, both eyes and all related structures Pupils: Equal, round and reactive pupils present EOM: EOMs intact bilaterally Resp Effort & Inspection: normal respiratory effort Auscultation: clear to auscultation bilaterally Cardio Rate: regular rate Rhythm: regular rhythm Heart sounds: S1 normal heart sound present, S2 normal heart sound present, no gallops, no murmurs and no rubs Neuro General: patient oriented x3 and gait normal Cranial nerves: Yes Equal, round and reactive pupils present Psych Affect: normal affect Results AMB Random Glucose (hemocue) AMB Random Glucose (hemocue) 184 mg/dL Last Edit by Anastasiya Mcnamara CMA on 11/08/23 12:51 Results Reviewed Results Reviewed: Laboratory Last Values Random Glu (Clinic) 184 mg/dL 11/08/23 12:49 Assessment and Plan Assessment & Plan (1) Diabetes: Code(s): E11.9 - Type 2 diabetes mellitus without complications Plan: Patient?has?widely?swimming?blood?sugars?and?had?had?some?low?blood?sugars?in?he r?afternoon.??She?is?taking?metformin?and?she?takes?glipizide?ER?5?mg?each?srinivas ng?around?11:00?o'clock. She?has?not?been?eating?a?meal?after?about?11:00?o'clock?when?she?has?her?breakf ast.??She?then?eats?again?at?her?evening?meal.??Blood?sugars?have?been?dropping? between?her?1st?and?2nd?meal?of?the?day. Advised?her?that?she?needs?to?eat?more?regular?meals?at?least?3?times?a?day. Reviewed?common?carbohydrates. Will?change?glipizide?ER?5?mg?daily?to?glipizide?ER?2.5?mg?b.i.d.?and?sh e?will?hold?on?her?2nd?dose?of?glipizide?unless?her?blood?sugars?are?over?300?fo r?now. Continue?metformin?as?prescribed Will?refer?her?to?the?nurse?navigator?to?help?her?with?food?choices?and?diabetic ?teaching Will?refer?her?to?endocrinology ?? Orders: Orders AMB Random Glucose (hemocue) Today E11.9 - Type 2 diabetes mellitus without complications Referrals Endocrinology Referral E11.40 - Type 2 diabetes mellitus with diabetic neur opathy, unspecified Nurse Navigator Referral E11.40 - Type 2 diabetes mellitus with diabetic neuropathy, unspecified Medications: Changed From glipizide ER 5 mg PO DAILY 90 days 90 tabs 2RF To glipizide ER 2.5 mg PO BID 90 days 180 tabs 2RF Refilled metformin 500 mg PO BID 90 days 180 tabs 3RF Coding Level of Care Code Est Pt Level 3 (36169) Diagnoses Diabetes E11.9
== END 2023-11-08 13:25 | disposition home or self-care (01) ==
LOC: HO.HMGFM 12:10
PROVIDERS: PCP Family Medicine; Visit Provider Family Medicine
DX: E11.9 Type 2 diabetes mellitus without complications (principal)
CPT/HCPCS: 82948; 99213

== ENCOUNTER 2023-12-24 11:54 | Outpatient (AMB) | payer MEDICARE, SELFPAY ==
[2023-12-24 11:56] VITALS: BP 124/66; PULSE 85; O2SAT 98; BMI 29.6
--- NOTE | 2023-12-24 11:56 | MHC.OFFWIV ---
Intake Vital Signs 12/24/23 11:56 Height 5 ft 5 in Weight 178 lb BMI 29.6 BP 124/66 Blood Pressure Location Lt brachial Position Sitting Pulse 85 Pulse Source Pulse Oximeter Pulse Oximetry (%) 98 Oxygen Delivery Method Room Air Intake Visit Reasons: Feet and ankle swelling Patient Tobacco Use Status: Former Tobacco user Allergies No Known Allergies Allergy (Verified 12/24/23 11:58) Medication List - Last Reconciled 12/24/23 by Latasha Chavis [facility]- aspirin 81 mg PO DAILY atorvastatin 40 mg PO BEDTIME 90 days blood-glucose meter,continuous ([employer] G7 Manager Social Work) As directed, 999 days blood-glucose sensor (Dexcom G7 Sensor device) As directed, 30 days duloxetine 30 mg PO DAILY glipizide ER 2.5 mg PO BID 90 days lisinopril 2.5 mg PO DAILY metformin 500 mg PO BID 90 days multivitamin 1 tab PO DAILY zinc gluconate 50 mg PO DAILY HPI HPI Comments History of Present Illness Details 73-year-old female here today for a walk-in visit with chief complaints of swelling of the right lower extremity. Notices a few days ago. At 1st she attributed this to increased salt intake in her diet. Since onset it has not worsened. She has been elevating her feet without any improvement. While she denies history of any cardiac issues including CHF, shortness for breath and chest pain she does endorse that she just had a surgical repair of a rectocele about 3 weeks ago prior to the onset of the swelling. Given this there was a concern for DVT. Plan DVT rule out ultrasound today. If positive hospital admission. If negative advised patient to return to the office in 1 week for further evaluation and treatment. Of note - stopped taking Glipizide as this caused hypoglycemia based on CGM readings. She should f/u wiht her PCP on this... next appt 01/15/24. [facility] Medical History Plantar fasciitis Memory loss Hair loss Diabetic neuropathy Wrist pain Shoulder pain Surgical History H/O: hysterectomy Previous section Family History Father High blood pressure High cholesterol Diabetes Brother Tongue cancer Social History Housing: House Alcohol intake: never Patient Tobacco Use Status: Former Tobacco user e-Cigarette/Vaping Use: Never Used service: No Current occupational status: retired Cognitive needs: No Hearing needs: No Vision needs: No Review of Systems Const All systems reviewed & are unremarkable except as noted in HPI and below Physical Exam Vital Signs: Last Vital Signs Pulse 85 12/24/23 11:56 BP 124/66 12/24/23 11:56 Pulse Ox 98 12/24/23 11:56 Oxygen Delivery Method Room Air 12/24/23 11:56 BMI result Body Mass Index 29.6 Const Other: awake alert oriented PERRLA RRR LS CTAB Very trace edema, nonpitting to Right ankle. + PP, Skin warm, dry, intact, Cap refill WNL. No edema LLE, + PP Neuro intact Assessment & Plan Assessment & Plan (1) Swelling of right lower extremity: Code(s): M79.89 - Other specified soft tissue disorders Plan: . Orders: Orders US venous duplex LE RT Today M79.89 - Other specified soft tissue disorders Patient Instructions: Plan DVT rule out ultrasound today. If positive hospital admission. If negative advised patient to return to the office in 1 week for further evaluation and treatment. as og 1614 today: US scheduled for tomorrow; pt to seek ED level care should she develop sob, chest pain Otherwise will fu as above. Of note - stopped taking Glipizide as this caused hypoglycemia based on CGM readings. She should f/u with her PCP on this... next appt 01/15/24. Coding Level of Care Code Est Pt Level 4 (73660) Diagnoses Swelling of right lower extremity M79.89
== END 2023-12-24 12:14 | disposition home or self-care (01) ==
PROVIDERS: PCP Family Medicine; Visit Provider Nurse Practitioner Family
DX: M79.89 Other specified soft tissue disorders (principal)
CPT/HCPCS: 99214

== ENCOUNTER 2023-12-25 11:22 | Outpatient (REF) | payer MEDICARE, SELFPAY ==
--- NOTE | ~2023-12-25 | US_ITS ---
EXAMINATION: US VENOUS ULTRASOUND WITH DOPPLER LOWER EXTREMITY, RIGHT CLINICAL INFORMATION: Edema. COMPARISON: None available. TECHNIQUE: Ultrasound of the deep veins is performed from the hip to the calf with compression sonography and color and pulse Doppler assessment. Spectral analysis with color-flow imaging is performed. FINDINGS: There is normal venous compression and respiratory variation and augmented flow. The visualized common femoral vein, superficial femoral vein, profunda femoral vein, popliteal vein, and the trifurcation region shows no evidence of deep venous thrombosis. There is no significant popliteal fossa cyst. Nonaggressive-appearing mildly prominent left inguinal lymph node, most likely reactive in nature. If the patient's symptoms persist, followup ultrasound in 5 days 7 days might be of value to exclude proximal propagation from a non-visualized calf vein. US/US venous duplex LE RT IMPRESSION: No DVT demonstrated in the right lower extremity.
== END 2023-12-25 11:23 | disposition home or self-care (01) ==
LOC: HO.US 11:22
PROVIDERS: PCP Family Medicine; Visit Provider Nurse Practitioner Family
DX: R60.0 Localized edema (principal)
CPT/HCPCS: 93971

== ENCOUNTER 2024-01-01 10:28 | Outpatient (AMB) | payer MEDICARE, SELFPAY ==
[2024-01-01 10:39] VITALS: BP 114/74; PULSE 92; O2SAT 98; BMI 29.0
--- NOTE | 2024-01-01 10:39 | MHC.PC.OV ---
Vital Signs 01/01/24 10:39 Height 5 ft 5 in Weight 174 lb 8 oz BMI 29.0 BP 114/74 Blood Pressure Location Lt brachial Position Sitting Pulse 92 Pulse Source Pulse Oximeter Pulse Oximetry (%) 98 Oxygen Delivery Method Room Air Intake Visit Reasons: 1 week fu RLE edema Intake Note: Patient is here for follow up on right lower extremity edema. Allergies No Known Allergies Allergy (Verified 01/01/24 10:43) Tobacco use date assessed: 11/08/23 Dental Screening Dental Screen Date: 10/09/23 HPI 1 week fu RLE edema HPI Details 73 y/o female presents to f/u diabetes. Had changed glipizide ER 5mg daily to glipizide ER 2.5mg b.i.d. and she will hold on her 2nd dose of glipizide unless her blood sugars are over 300. Pt notes glipizide had been causing her low blood sugars and is only on metformin now. Morning blood sugars have been in the 100-115s. Had referred her to endocrinology and nurse navigation for diabetic teaching. Also f/u RLE swelling. She notes swelling have improved. [facility] Medical History Plantar fasciitis Memory loss Hair loss Diabetic neuropathy Wrist pain Shoulder pain Surgical History H/O: hysterectomy Previous section Family History Father High blood pressure High cholesterol Diabetes Brother Tongue cancer Social History Housing: House Alcohol intake: never Patient Tobacco Use Status: Former Tobacco user e-Cigarette/Vaping Use: Never Used service: No Current occupational status: retired Cognitive needs: No Hearing needs: No Vision needs: No Questionnaire Thrive Questionnaire Date Thrive assessed: 10/09/23 ADAMA-7 AMB Questionnaire ADAMA-7 Date ADAMA - 7 assessed: 10/09/23 Source: Developed by Drs. Jax Kaye, Edith Ahn, Mir Moura and colleagues, with an educational anibal from [employer]. Review of Systems Const Denies chills, Denies fatigue, Denies fever(s), Denies headache(s) and Denies weakness ENT Denies dizziness and Denies headache(s) Card Denies chest pain, Denies lightheadedness, Denies dyspnea and Denies other (Palpitations) Resp Denies cough, Denies dyspnea, Denies wheezing and Denies other ( shortness of breath) Musc Denies numbness and Denies tingling Neuro Denies dizziness, Denies headache(s), Denies numbness, Denies tingling, Denies paresthesias and Denies weakness Psych Denies anxiety and Denies depression Endo Denies fatigue Aller/Immun Denies wheezing Physical exam (Primary Care) Vital Signs: Last Vital Signs Pulse 92 01/01/24 10:39 BP 114/74 01/01/24 10:39 Pulse Ox 98 01/01/24 10:39 Oxygen Delivery Method Room Air 01/01/24 10:39 BMI result Body Mass Index 29.0 Tobacco/Smoking Status: Tobacco use Status Tobacco use date assessed 11/08/23 01/01/24 10:42 Patient Tobacco Use Status Former Tobacco user 01/01/24 10:42 e-Cigarette/Vaping Use Never Used 01/01/24 10:42 Thrive Assessment: Date of Thrive Assessment Date Thrive assessed 10/09/23 01/01/24 10:42 Const General: no acute distress and well developed Nutritional Appearance: well nourished Orientation/consciousness: patient oriented x3 HENMT Head: Yes normocephalic and Yes atraumatic Eyes General: appearance normal, both eyes and all related structures Pupils: Equal, round and reactive pupils present EOM: EOMs intact bilaterally Resp Effort & Inspection: normal respiratory effort Auscultation: clear to auscultation bilaterally Cardio Rate: regular rate Rhythm: regular rhythm Heart sounds: S1 normal heart sound present, S2 normal heart sound present, no gallops, no murmurs and no rubs Neuro General: patient oriented x3 and gait normal Cranial nerves: Yes Equal, round and reactive pupils present Psych Affect: normal affect Assessment and Plan Assessment & Plan (1) Swelling of right lower extremity: Code(s): M79.89 - Other specified soft tissue disorders Plan: Patient?had?had?bilateral?lower?extremity?edema,?right?worse?than?left DVT?was?negative She?had?had?a?recent?surgery?and?this?is?likely?the?underlying?cause?for?the?lower?extremity?edema?which?has?now?resolved. She?will?let?me?know?if?edema?recurs (2) Diabetes: Code(s): E11.9 - Type 2 diabetes mellitus without complications Plan: Patient?had?stopped?glipizide?due?to?ongoing?low?blood?sugar She?has?a?continuous?glucose?monitor?and?morning?blood?sugars?are?typically?around?107?according?to?patient. No?need?to?continue?glipizide.??However?I?did?recommend?that?she?follow-up?with?an?drive in teller?and?she?has?not?been?contacted?from?[facility]?as?referred. Will?make?a?new?referral?to?[facility]?endocrinology. She?has?an?appointment?with?me?next?month?to?follow-up?on?her?diabetes Coding Level of Care Code Est Pt Level 3 (59782) Diagnoses Swelling of right lower extremity M79.89 Diabetes E11.9
== END 2024-01-01 11:27 | disposition home or self-care (01) ==
PROVIDERS: PCP Family Medicine; Visit Provider Family Medicine
DX: M79.89 Other specified soft tissue disorders (principal); E11.9 Type 2 diabetes mellitus without complications
CPT/HCPCS: 99213

== ENCOUNTER 2024-01-15 09:48 | Outpatient (AMB) | payer MEDICARE, SELFPAY ==
--- NOTE | 2024-01-15 10:02 | A.OFFPC_ITS ---
Vital Signs 01/15/24 10:04 Height 5 ft 5 in Weight 172 lb 6 oz BMI 28.7 BP 112/66 Blood Pressure Location Rt brachial Position Sitting Respiration 14 Pulse 104 H Pulse Source Pulse Oximeter Temp 97.8 F Temp Source Temporal Artery Scan Pulse Oximetry (%) 97 Oxygen Delivery Method Room Air Intake Visit Reasons: f/u diabetes, HLD Custodial Engineer Required: No Accompanied by: Self / Same As Patient Allergies No Known Allergies Allergy (Verified 01/15/24 10:13) Tobacco use date assessed: 11/08/23 Fall risk assessment: No Falls in past year Last assessed Fall Risk: 01/15/24 Dental Screening Dental Screen Date: 10/09/23 HPI f/u diabetes, HLD HPI Details 73 y/o female presents to f/u diabetes HLD. A1c today 01/15/24 6.9% which improved from 8.0% in October. She is on metformin 500mg b.i.d., glipizide 2.5mg b.i.d. She notes she has lost some weight and walks the dog every other day. No recent lipid panel to review. Blood pressure today 112/66. She is on lisinopril 2.5mg daily. [facility] Medical History Plantar fasciitis Memory loss Hair loss Diabetic neuropathy Wrist pain Shoulder pain Surgical History H/O: hysterectomy Previous section Family History Father High blood pressure High cholesterol Diabetes Brother Tongue cancer Social History Housing: House Alcohol intake: never Patient Tobacco Use Status: Former Tobacco user e-Cigarette/Vaping Use: Never Used service: No Current occupational status: retired Cognitive needs: No Hearing needs: No Vision needs: No Questionnaire Thrive Questionnaire Date Thrive assessed: 10/09/23 ADAMA-7 AMB Questionnaire ADAMA-7 Date ADAMA - 7 assessed: 10/09/23 Source: Developed by Drs. Jax Kaye, Edith Ahn, Mir Moura and colleagues, with an educational anibal from [employer]. Review of Systems Const Denies chills, Denies fatigue, Denies fever(s), Denies headache(s) and Denies weakness ENT Denies dizziness and Denies headache(s) Card Denies dyspnea Resp Denies cough, Denies dyspnea, Denies wheezing and Denies other (shortness of breath) Musc Denies numbness and Denies tingling Neuro Denies dizziness, Denies headache(s), Denies numbness, Denies tingling and Denies weakness Psych Denies anxiety and Denies depression Endo Denies fatigue Aller/Immun Denies wheezing Physical exam (Primary Care) Vital Signs: Last Vital Signs Temp 97.8 F 01/15/24 10:04 Pulse 104 H 01/15/24 10:04 Resp 14 01/15/24 10:04 BP 112/66 01/15/24 10:04 Pulse Ox 97 01/15/24 10:04 Oxygen Delivery Method Room Air 01/15/24 10:04 BMI result Body Mass Index 28.7 Tobacco/Smoking Status: Tobacco use Status Tobacco use date assessed 11/08/23 01/15/24 10:09 Patient Tobacco Use Status Former Tobacco user 01/15/24 10:09 e-Cigarette/Vaping Use Never Used 01/15/24 10:09 Thrive Assessment: Date of Thrive Assessment Date Thrive assessed 10/09/23 01/15/24 10:09 Const General: well developed; No acute distress Nutritional Appearance: well nourished Orientation/consciousness: patient oriented x3 HENMT Head: Yes normocephalic and Yes atraumatic Eyes General: appearance normal, both eyes and all related structures Pupils: Equal, round and reactive pupils present EOM: EOMs intact bilaterally Resp Effort & Inspection: normal respiratory effort Auscultation: clear to auscultation bilaterally Cardio Rate: regular rate Rhythm: regular rhythm Heart sounds: S1 normal heart sound present, S2 normal heart sound present, no gallops, no murmurs and no rubs Neuro General: patient oriented x3 and gait normal Cranial nerves: Yes Equal, round and reactive pupils present Psych Affect: normal affect Results AMB Hemoglobin A1c AMB Hemoglobin A1c 6.9 % Last Edit by ANGELO Willis on 01/15/24 10:2 1 Results Reviewed Results Reviewed: Laboratory Last Values Hgb A1c (Clinic) 6.9 % (4.0-6.0) H 01/15/24 10:15 Assessment and Plan Assessment & Plan (1) Diabetes mellitus with neuropathy: Code(s): E11.40 - Type 2 diabetes mellitus with diabetic neuropathy, unspecified Plan: A1c?now?6.9%?on?metformin.??Good?control.??Goal?is?less?than?7.0%. She?is?doing?well?on?metformin?alone?with?her?continuous?glucose?monitoring. Encouraged?ongoing?diet?low?in?sugars?and?starches?and?encouraged?increased?exer cise. Referred?to?Ophthalmology?for?diabetic?eye?exam She?had?been?referred?to?endocrinology?at?[facility].??She?has?not?been?contact?yet?so? I?have?given?her?the?phone?number. (2) Essential hypertension: Code(s): I10 - Essential (primary) hypertension Plan: Blood?pressure?is?controlled.??Goal?is?less?than?140/90 Continue?current?medication (3) Hyperlipidemia: Code(s): E78.5 - Hyperlipidemia, unspecified Plan: She?is?on?atorvastatin. She?will?have?her?labs?drawn?prior?to?next?visit?and?we?will?review Orders: Orders Comprehensive [place]. Panel Fast Today E78.5 - Hyperlipidemia, unspecified, Z00.00 - Encounter for general adult medical examination without abnormal findings AMB Hemoglobin A1c Today E11.40 - Type 2 diabetes mellitus with diabetic neuropathy, unspecified Lipid Panel Today E78.5 - Hyperlipidemia, unspecified, Z00.00 - Encounter for general adult medical examination without abnormal findings Referrals Ophthalmology Referral E11.9 - Type 2 diabetes mellitus without complications Medications: Discontinued glipizide ER Discontinued Reason: Patient no longer taking 2.5 mg PO BID 90 days 180 tabs 2RF Coding Level of Care Code Est Pt Level 3 (18752) Diagnoses Diabetes mellitus with neuropathy E11.40 Essential hypertension I10 Hyperlipidemia E78.5
[2024-01-15 10:04] VITALS: BP 112/66; PULSE 104; RESP 14; TEMP 36.6; O2SAT 97; BMI 28.7
== END 2024-01-15 10:47 | disposition home or self-care (01) ==
PROVIDERS: PCP Family Medicine; Visit Provider Family Medicine
DX: E11.40 Type 2 diabetes mellitus with diabetic neuropathy, unspecified (principal); I10 Essential (primary) hypertension; E78.5 Hyperlipidemia, unspecified
CPT/HCPCS: 83036; 99213

== ENCOUNTER 2024-04-20 11:09 | Outpatient (REF) | payer MEDICARE, SELFPAY ==
[2024-04-20 13:57] LABS: Alanine Aminotransferase 31 U/L (0-31); Albumin Level 4.1 g/dL (3.5-5.0); Alkaline Phosphatase 91 U/L (39-117); Anion Gap 11 (12-20); Aspartate Amino Transferase 25 U/L (5-31); Bilirubin Total 0.8 mg/dL (0.0-1.0); Blood Urea Nitrogen 14 mg/dL (9-16); Calcium 9.5 mg/dL (8.4-10.2); Carbon Dioxide 27 mmol/L (22-29); Chloride 105 mmol/L (96-108); Cholesterol 197 mg/dL (<200); Estimated Glomerular Filt Rate > 60; Glucose Fasting 143 mg/dL (60-99); HDL Cholesterol 58 mg/dL (>40); LDL Cholesterol Calculated 109 mg/dL (<100); Potassium 4.5 mmol/L (3.3-5.1); Sodium 138 mmol/L (135-145); Total Protein 6.9 g/dL (6.5-8.0); Triglycerides 150 mg/dL (<150)
== END 2024-04-20 11:10 | disposition home or self-care (01) ==
LOC: HO.WFDLDS 11:09
PROVIDERS: Visit Provider Family Medicine
DX: Z00.00 Encounter for general adult medical examination without abnormal findings (principal); E78.5 Hyperlipidemia, unspecified
CPT/HCPCS: 36415; 80053; 80061

== ENCOUNTER 2024-04-21 09:42 | Outpatient (AMB) | payer MEDICARE, SELFPAY ==
--- NOTE | 2024-04-21 09:59 | MHC.PC.OV ---
Vital Signs 04/21/24 10:01 Height 5 ft 5 in Weight 172 lb 2 oz BMI 28.6 BP 124/67 Blood Pressure Location Rt brachial Position Sitting Respiration 14 Pulse 81 Pulse Source Pulse Oximeter Temp 96.6 F L Temp Source Temporal Artery Scan Pulse Oximetry (%) 100 Oxygen Delivery Method Room Air Intake Visit Reasons: F/U Diabetes/lipids Intake Note: DMf/u and labs Allergies No Known Allergies Allergy (Verified 04/21/24 09:59) Tobacco use date assessed: 11/08/23 Dental Screening Dental Screen Date: 10/09/23 HPI F/U Diabetes/lipids HPI Details 73 y/o female presents to f/u diabetes, HLD. Last A1c 01/15/24 6.9% which improved from 8.0% in October. A1c today 04/21/24 is 7.3%. She is on metformin 500mg b.i.d. She had discontinued her glipizide as her blood sugars had been fluctuating too much. She gets a diabetic eye exam every year. Labs drawn 04/20/24. Reviewed labs with pt. Elevated fasting glucose of 143. Triglycerides 150. TC 197. LDL 109. HDL 58. She is on artovastatin 40mg. HPI Comments History of Present Illness Details Documentation assistance for Devonte Ferreira MD, was provided by Alfredo Knox, [employer] on 04/21/2024 at 10:13 AM EST. I, Dr. Ferreira, have read, observed, and verified documentation. [facility] Medical History Plantar fasciitis Memory loss Hair loss Diabetic neuropathy Wrist pain Shoulder pain Surgical History H/O: hysterectomy Previous section Family History Father High blood pressure High cholesterol Diabetes Brother Tongue cancer Social History Housing: House Alcohol intake: never Patient Tobacco Use Status: Former Tobacco user e-Cigarette/Vaping Use: Never Used service: No Current occupational status: retired Cognitive needs: No Hearing needs: No Vision needs: No Questionnaire Thrive Questionnaire Date Thrive assessed: 10/09/23 ADAMA-7 AMB Questionnaire ADAMA-7 Date ADAMA - 7 assessed: 10/09/23 Source: Developed by Drs. Jax Kaye, Edith Ahn, Mir Moura and colleagues, with an educational anibal from [employer]. Review of Systems Const Denies chills, Denies fatigue, Denies fever(s), Denies headache(s) and Denies weakness ENT Denies dizziness and Denies headache(s) Card Denies dyspnea Resp Denies cough, Denies dyspnea, Denies wheezing and Denies other (shortness of breath) Musc Denies numbness and Denies tingling Neuro Denies dizziness, Denies headache(s), Denies numbness, Denies tingling and Denies weakness Psych Denies anxiety and Denies depression Endo Denies fatigue Aller/Immun Denies wheezing Physical exam (Primary Care) Vital Signs: Last Vital Signs Temp 96.6 F L 04/21/24 10:01 Pulse 81 04/21/24 10:01 Resp 14 04/21/24 10:01 BP 124/67 04/21/24 10:01 Pulse Ox 100 04/21/24 10:01 Oxygen Delivery Method Room Air 04/21/24 10:01 BMI result Body Mass Index 28.6 Tobacco/Smoking Status: Tobacco use Status Tobacco use date assessed 11/08/23 04/21/24 10:04 Patient Tobacco Use Status Former Tobacco user 04/21/24 10:04 e-Cigarette/Vaping Use Never Used 04/21/24 10:04 Thrive Assessment: Date of Thrive Assessment Date Thrive assessed 10/09/23 04/21/24 10:04 Const General: well developed; No acute distress Nutritional Appearance: well nourished Orientation/consciousness: patient oriented x3 HENMT Head: Yes normocephalic and Yes atraumatic Eyes General: appearance normal, both eyes and all related structures Pupils: Equal, round and reactive pupils present EOM: EOMs intact bilaterally Resp Effort & Inspection: normal respiratory effort Auscultation: clear to auscultation bilaterally Cardio Rate: regular rate Rhythm: regular rhythm Heart sounds: S1 normal heart sound present, S2 normal heart sound present, no gallops, no murmurs and no rubs Neuro General: patient oriented x3 and gait normal Cranial nerves: Yes Equal, round and reactive pupils present Psych Affect: normal affect Coding Level of Care Code Est Pt Level 3 (65407) Diagnoses Diabetes E11.9 Hyperlipidemia E78.5 Assessment & Plan Assessment & Plan (1) Diabetes: Code(s): E11.9 - Type 2 diabetes mellitus without complications Category: Medical Plan: A1c?has?risen?to?7.3%?which?is?above?goal?of?less?than?7.0%. Continue?metformin.??She?did?not?tolerate?higher?doses?of?metformin.??She?stopped?glipizide?because?it?was?causing?blood?sugars?to?swing?widely. Will?try?Ozempic. She?will?also?work?at?a?diet?lower?in?sugars?and?starches?and?work?at?weight?loss Patient?says?she?saw?Dr. Michel this?summer.??Will?request?report She?wants?to?switch?to?[facility]?eye?care?however?and?referral?is?already?in (2) Hyperlipidemia: Code(s): E78.5 - Hyperlipidemia, unspecified Category: Medical Plan: LDL?cholesterol?109?is?above?goal?of?less?than?100.??She?is?on?atorvastatin?40?mg?daily. Encouraged?diet?lower?in?saturated?fats?and?cholesterol Encouraged?weight?loss No?change?to?her?medication?today?but?we?did?discuss?that?if?she?is?unable?to?bring?this?down?we?should?increase?atorvastatin?to?80?mg?daily. Orders: Orders Lipid Panel Today E78.5 - Hyperlipidemia, unspecified, Z00.00 - Encounter for general adult medical examination without abnormal findings Comprehensive [place]. Panel Fast Today E78.5 - Hyperlipidemia, unspecified, Z00.00 - Encounter for general adult medical examination without abnormal findings Medications: New semaglutide (Ozempic) for 4 weeks 0.25 mg (0.368 mL) subcut QWEEK 28 days 1.472 mL 0RF E11.40 - Type 2 diabetes mellitus with diabetic neuropathy, unspecified
[2024-04-21 10:01] VITALS: BP 124/67; PULSE 81; RESP 14; TEMP 35.9; O2SAT 100; BMI 28.6
== END 2024-04-21 10:32 | disposition home or self-care (01) ==
PROVIDERS: PCP Family Medicine; Visit Provider Family Medicine
DX: E11.9 Type 2 diabetes mellitus without complications (principal); E78.5 Hyperlipidemia, unspecified

== ENCOUNTER → 2024-04-21 09:42 | Outpatient (BNVA) | payer MEDICARE, SELFPAY | PROVIDERS: PCP Family Medicine; Visit Provider Family Medicine | DX: E11.9 Type 2 diabetes mellitus without complications (principal); E78.5 Hyperlipidemia, unspecified | CPT/HCPCS: 99212 ==

== ENCOUNTER 2024-05-07 10:42 | Outpatient (AMB) | payer MEDICARE, SELFPAY ==
--- OUTSIDE RECORDS SUMMARY | 2024-05-07 10:43 | XMS_ITS | Continuity of Care Document ---
Author Organization [facility] ter Address [address] [place] [address]- Care Team Providers Care Stock Saw Operator Name Role Phone Giovanna Pinon DO Primary Care Physician [place] [facility] [place] Date(s): 03/04/22 - 03/05/[address] [address]- Discharge Disposition: A-D/C Home Attending Physician: Zay Astorga MD Admitting Physician: Jc Calderón MD Referring Physician: Jc Calderón MD Allergies, Adverse Reactions, Alerts Substance Reaction Severity Status Zofran Active Medications aspirin 81 mg oral tablet, disintegrating 1 tablet = 81 mg, By Mouth, Daily, 0 Refills, Maintenance, 02/16/19 11:02:48 EDT Start Date: 02/16/19 Status: Ordered atorvastatin 40 mg oral tablet 1 tablet = 40 mg, By Mouth, Daily, 0 Refills, Maintenance, 02/16/19 11:00:56 EDT Start Date: 02/16/19 Status: Ordered Centrum Silver 1 tablet, By Mouth, Daily, 0 Refills, Maintenance, 02/16/19 11:03:06 EDT Start Date: 02/16/19 Status: Ordered duloxetine 30 mg oral enteric coated capsule 1 capsule = 30 mg, By Mouth, Daily, 0 Refills, Maintenance, 02/16/19 11:01:43 EDT Start Date: 02/16/19 Status: Ordered lidocaine 4% topical film 1 patch, Topically, 2 times a day, PRN Pain , Moderate, do not leave patch on for more than 8 hoursat a time, # 6 patch, 0 Refills, Maintenance, 10/05/20 20:16:00 EDT, Film, [facility], Partial fill upon patient request if the prescript... Start Date: 10/05/20 Status: Ordered lisinopril 2.5 mg oral tablet 2.5 mg, 1, tablet, By Mouth, Daily, Refills 0, Maintenance, 02/16/19 11:02:16 EDT Start Date: 02/16/19 Status: Ordered lisinopril 5 mg oral tablet 2.5 mg, Tablet, By Mouth, 03/05/22 9:00:00 EDT Start Date: 03/05/22 Stop Date: 03/05/22 Status: Completed metFORMIN 500 mg oral tablet 1 tablet = 500 mg, By Mouth, 2 times a day, 0 Refills, Maintenance, 02/16/19 11:02:03 EDT Start Date: 02/16/19 Status: Ordered pregabalin 75 mg oral capsule 1 capsule = 75 mg, By Mouth, 2 times a day, # 60 capsule, 0 Refills, Maintenance, 09/15/19 17:01:00EDT, Capsule Start Date: 09/15/19 Status: Ordered Problem List Condition Effective Dates Status Health Status Inform ant Benign essential HTN(Confirmed) Active Complete heart block(Confirmed) Active Diabetes(Confirmed) Active Diverticulitis(Confirmed) Active History of TIAs(Confirmed) Active Hyperlipidemia(Confirmed) Active Menopause(Confirmed) Active Neuropathy, peripheral(Confirmed) Active Vital Signs Most recent to oldest [Reference Range]: 1 2 3 Height 165 cm (03/05/22 7:32 AM) 165 cm (03/05/22 2:19 AM) 165 cm (03/04/22 8:33 PM) Weight 81.4 kg (03/04/22 3:50 PM) Oxygen Saturation [94-100 %] 95 % (03/05/22 7:32 AM) 91 % *L* (03/05/22 2:19 AM) 97 % (03/04/22 8:33 PM) Pulse Rate [55-90 bpm] 82 bpm (03/05/22 7:32 AM) 56 bpm (03/05/22 2:19 AM) 56 bpm (03/04/22 8:33 PM) Body Mass Index [18.5-24.99] 29.9 *H* (03/04/22 3:50 PM) Blood Pressure [90-138/55-84 mm Hg] 112/73mm Hg (03/05/22 8:09 AM) 112/73mm Hg (03/05/22 7:32 AM) 95/57mm Hg (03/05/22 2:19 AM) Respiratory Rate [16-30 br/min] 19 br/min (03/05/22 7:32 AM) 18 br/min (03/05/22 2:19 AM) 18 br/min (03/04/22 8:33 PM) Temperature [96.8-100.4 DegF] 98.1 DegF (03/05/22 7:32 AM) 97.9 DegF (03/05/22 2:19 AM) 97.9 DegF (03/04/22 8:33 PM) Mode of Delivery (Oxygen) Room air (03/05/22 7:32 AM) Room air (03/05/22 2:19 AM) Room air (03/04/22 8:33 PM) Blood pressure sites Arm, left (03/05/22 7:32 AM) Arm, right (03/05/22 2:19 AM) Arm, left (03/04/22 8:33 PM) Temperature Route Oral (03/05/22 7:32 AM) Temporal (03/05/22 2:19 AM) Temporal (03/04/22 8:33 PM) Dry Weight 81.4 kg (03/04/22 3:50 PM) Social History Social History Type Response Smoking Status Former smoker, quit more than 30 days ago entered on: 03/04/22 Sex Care Team Personnel Name: Giovanna Pinon DO Address: [address] [facility] [place], [place] [address] [[email or web address]]
--- OUTSIDE RECORDS SUMMARY | 2024-05-07 10:44 | XMS_ITS | Continuity of Care Document ---
Author Organization [facility] n[facility] [employer] Address [address] [place] [address], [address] [place] [address]- Care Team Providers Care Newspaper Editor Managing Name Role Phone Hanna HARRISON, Devonte Maldonado Primary Care Physician Encounter [facility] Date(s): 08/23/23 - 09/22/23 [facility] [employer] [address] [facility], [address] [place], [place] [address] Allergies, Adverse Reactions, Alerts Substance Reaction Severity Status morphine Severe Active Zofran Active Medications aspirin 81 mg oral [...] 11:01:43 EDT Start Date: 02/16/19 Status: Ordered estradiol 0.1 mg/g vaginal cream = 1 Gm, Vaginally, Daily at bedtime, take every night for two weeks then twice weekly, # 42.5 Gm, 8Refills, Maintenance, 08/13/23 15:40:00 EST, [facility], Partial fill upon patient request if the prescription is for a schedule II opioi... Start Date: 08/13/23 Status: Ordered lidocaine 4% topical film 1 [...] 11:02:16 EDT Start Date: 02/16/19 Status: Ordered metFORMIN 500 mg oral tablet 1 tablet = 500 mg, By Mouth, 2 times a day, 0 Refills, Maintenance, 02/16/19 11:02:03 EDT Start Date: 02/16/19 Status: Ordered pregabalin 75 mg oral capsule 1 capsule = 75 mg, By Mouth, 2 times a day, # 60 capsule, 0 Refills, Maintenance, 09/15/19 17:01:00EDT, Capsule Start Date: 09/15/19 Status: Ordered Problem List Condition Confirmation Course Effective Dates Status H ealth Status Informant Benign essential HTN Confirmed Active Complete heart block Confirmed Active Diabetes Confirmed Active Diverticulitis Confirmed Active History of TIAs Confirmed Active Hyperlipidemia Confirmed Active Menopause Confirmed Active Neuropathy, peripheral Confirmed Active 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 Name: Alyson Sellers RN Position: S RN Member Role: Primary Care Nurse Care Team Related Persons Name: ELLA MILLER Address: home [address] [place] [address] Name: ELLA MILLER Address: [employer] Address: [address] [place] [address] [place]
--- OUTSIDE RECORDS SUMMARY | 2024-05-07 10:44 | XMS_ITS | Continuity of Care Document ---
Author Organization [facility] Address [address] [place] [address], [address] [place] [address]- Care Team Providers Care Sales Support Assistant Name Role Phone Hanna HARRISON, Devonte Maldonado Primary Care Physician [phone] [place] [facility] [place] [id number] Date(s): 08/13/23 - 08/20/23 [facility] [address] [place] [address], [address] [place] [address]- Attending Physician: Layla Jackson MD Referring Physician: Jax Haskins MD Allergies, Adverse Reactions, Alerts Substance Reaction [...] III (vulvar intraepithelial neoplasia III) Confirmed Active Vital Signs Most recent to oldest [Reference Range]: 1 Height 165.4 cm (08/13/23 3:00 PM) Weight 77.5 kg (08/13/23 3:00 PM) Body Mass Index [18.5-24.99 kg/m2] 28.33 kg/m2 *H* (08/13/23 3:00 PM) Blood Pressure [90-138/55-84 mm Hg] 124/ 72mm Hg (08/13/23 3:00 PM) Blood pressure sites Arm, right (08/13/23 3:00 PM) Dry Weight 77.5 kg (08/13/23 3:00 PM) Weight Obtained Via Standing scale (08/13/23 3:00 PM) Dry Weight Obtained Via Standing scale (08/13/23 3:00 PM) Social History Social History Type Response Smoking Status Former smoker, quit more than 30 days ago entered on: 03/04/22 Sex Patient Care team information Care Team Personnel Name: Devonte Ferreira MD Position: [facility] Outreach Member Role: PCP Address: Address: [address] [place] [address]- Name: Alyson Sellers RN Position: [facility] RN Member Role: Primary Care Nurse Care Team Related Persons Name: ELLA MILLER Address: [employer] Address: home [address] [place] [address] [place] Name: ELLA MILLER Address: [address] [place] [address]
--- OUTSIDE RECORDS SUMMARY | 2024-05-07 10:44 | XMS_ITS | Continuity of Care Document ---
Author Organization [facility]UDIT[facility] Address [address] [place] [address]- Care Team Providers Care Industrial Design Intern Name Role Phone Hanna HARRISON, Devonte Maldonado Primary Care Physician Encounter [facility] [place] Date(s): 09/11/23 - 10/11/23 [facility] STATE AUDITOR Oncology [address] [place] [address] Attending Physician: Stone Brown Admitting Physician: Stone Brown Referring Physician: AdmtrStone Allergies, Adverse Reactions, Alerts Substance Reaction Severity [...] Team Personnel Name: Devonte Ferreira MD Position: [facility] Outreach Member Role: PCP Address: Address: [address] [place] [address]- Name: Alyson Sellers RN Position: S RN Member Role: Primary Care Nurse Care Team Related Persons Name: ELLA MILLER Address: [employer] Address: [address] [place] Name: ELLA MILLER Address: home [address] [place] [address]
--- OUTSIDE RECORDS SUMMARY | 2024-05-07 10:44 | XMS_ITS | Continuity of Care Document ---
Author Organization [facility] Aniya [facility] Address [address] [place] [address], [address] [place] [address]- Care Team Providers Care Conference Services Director Name Role Phone Hanna HARRISON, Devonte Maldonado Primary Care Physician [place] [facility] [place] 09/12/23 [facility] [address] [facility], [address] [place], [place] [address] Attending Physician: Stone Brown Admitting Physician: Stone Brown Referring Physician: AdmStone irvin Allergies, Adverse Reactions, Alerts Substance Reaction Severity [...] Team Personnel Name: Devonte Ferreira MD Position: [facility] Outreach Member Role: PCP Address: Address: [address] [place] [address] Name: Alyson Sellers RN Position: S RN Member Role: Primary Care Nurse Care Team Related Persons Name: ELLA MILLER Address: home [address] [place] [address] Name: ELLA MILLER Address: [employer] Address: [address]
--- OUTSIDE RECORDS SUMMARY | 2024-05-07 10:44 | XMS_ITS | Continuity of Care Document ---
Author Organization [facility] FINANCIAL SERVICES INTERN Oncolog y Address [address] [place] [address]- Care Team Providers Care Nuclear Medicine Physician Name Role Phone Hanna HARRISON, Devonte Maldonado Primary Care Physician [phone] Encounter [facility] [place] Date(s): 03/04/23 - 04/03/23 [facility] FINANCIAL SERVICES INTERN Oncology [address] [place] [id number] Allergies, Adverse Reactions, Alerts Substance Reaction [...] Team Personnel Name: Devonte Ferreira MD Position: [facility] Outreach Member Role: PCP Address: Address: [address] [place] [address] Name: Alyson Sellers RN Position: [facility] RN Member Role: Primary Care Nurse Care Team Related Persons Name: ELLA MILLER Address: home [address] [place] [address] Name: ELLA MILLER Address: [employer] Address: [place] [address]
--- OUTSIDE RECORDS SUMMARY | 2024-05-07 10:44 | XMS_ITS | Continuity of Care Document ---
Author Organization [facility] Address [address] [place] [address], [address] [place] [address]- Care Team Providers Care Post Splitter Name Role Phone Hanna HARRISON, Devonte Maldonado Primary Care Physician Encounter [facility] [place] Date(s): 11/28/23 - 12/28/23 [facility] [address] [facility], [address] [place] [address]- Allergies, Adverse Reactions, Alerts Substance Reaction Severity Status morphine Severe Active Zofran Active Medications aspirin 81 mg oral tablet, disintegrating 1 tablet = 81 mg, By Mouth, Daily, 0 Refills, Maintenance, 02/16/19 11:02:48 EDT Start Date: 02/16/19 Status: Ordered atorvastatin 40 mg oral tablet 1 tablet = 40 mg, By Mouth, Daily, 0 Refills, Maintenance, 02/16/19 11:00:56 EDT Start Date: 02/16/19 Status: Ordered duloxetine 30 mg oral enteric coated capsule 1 capsule = 30 mg, By Mouth, Daily, 0 Refills, Maintenance, 02/16/19 11:01:43 EDT Start Date: 02/16/19 Status: Ordered lisinopril 2.5 mg oral tablet 2.5 mg, 1, tablet, By Mouth, Daily, Refills 0, Maintenance, 02/16/19 11:02:16 EDT Start Date: 02/16/19 Status: Ordered metFORMIN 500 mg oral tablet 1 tablet = 500 mg, By Mouth, 2 times a day, 0 Refills, Maintenance, 02/16/19 11:02:03 EDT Start Date: 02/16/19 Status: Ordered zinc (as gluconate) 50 mg oral tablet 1 tablet = 50 mg, By Mouth, Daily, # 30 tablet, 0 Refills, Maintenance, 11/26/23 9:20:00 EDT, Tablet, Partial fill upon patient request if the prescription is for a schedule II opioid drug. 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
--- OUTSIDE RECORDS SUMMARY | 2024-05-07 10:44 | XMS_ITS | Continuity of Care Document ---
Author Organization [facility] Address [address] [place] [address], [address] [place] [address]- Care Team Providers Care Greeter Guest Services Name Role Phone Hanna HARRISON, Devonte Maldonado Primary Care Physician [place] [facility] [id number] Date(s): 08/07/23 - 10/23/23 [facility] [address] [facility], [address] [place] [address]- Attending Physician: Layla Jackson MD Admitting Physician: Layla Jackson MD Referring Physician: Jax [...] Team Personnel Name: Devonte Ferreira MD Position: [facility] Outreach Member Role: PCP Address: Address: [address] [place] [address]- Name: Alyson Sellers RN Position: S RN Member Role: Primary Care Nurse Care Team Related Persons Name: ELLA MILLER Address: [employer] Address: home [address] [place] [address] [place] Name: ELLA MILLER Address: [address] [place] [address]
--- OUTSIDE RECORDS SUMMARY | 2024-05-07 10:44 | XMS_ITS | Continuity of Care Document ---
Author Organization [facility] RECREATION SUPERVISOR Oncolog y Address [address] [place] [address]- Care Team Providers Care Risk Investigator Name Role Phone Hanna HARRISON, Devonte Maldonado Primary Care Physician Encounter [facility] [place] Date(s): 06/17/23 - 10/11/23 [facility] RECREATION SUPERVISOR Oncology [address] [place] [id number] Attending Physician: Lina Mcneill MD Admitting Physician: Lina Mcneill MD Allergies, Adverse Reactions, Alerts Substance Reaction [...] Team Personnel Name: Devonte Ferreira MD Position: [facility] Outreach Member Role: PCP Address: Address: [address] [place] [address]- Name: Alyson Sellers RN Position: S RN Member Role: Primary Care Nurse Care Team Related Persons Name: ELLA MILLER Address: [employer] Address: home [address] [place] [address] [place] Name: ELLA MILLER Address: home [address] [place] [address]
--- OUTSIDE RECORDS SUMMARY | 2024-05-07 10:44 | XMS_ITS | Continuity of Care Document ---
Author Organization [facility] ter Address [address] [place] [id number]- Care Team Providers Care Rrts Name Role Phone Hanna HARRISON, Devonte Maldonado Primary Care Physician [phone] Encounter [facility] [place], [place] Date(s): 11/29/23 - 11/29/[address] [address] Discharge Disposition: A-D/C Home Attending Physician: Layla Jackson MD Admitting Physician: Layla Jackson MD Referring Physician: Layla Jackson MD Allergies, Adverse Reactions, Alerts Substance Reaction [...] 11:01:43 EDT Start Date: 02/16/19 Status: Ordered ibuprofen 600 mg oral tablet 600 mg, 1, tablet, By Mouth, 4 times a day, PRN, # 40 tablet, Refills 0, Tot. Refills 0, Maintenance, for pain, 11/29/23 14:01:00 EDT, Route to Pharmacy Electronically, [id number], Partial fill upon patient request if the prescription is... Start Date: 11/29/23 Status: Ordered lisinopril 2.5 mg oral tablet 2.5 mg, 1, tablet, By Mouth, Daily, Refills 0, Maintenance, 02/16/19 11:02:16 EDT Start Date: 02/16/19 Status: Ordered metFORMIN 500 mg oral tablet 1 tablet = 500 mg, By Mouth, 2 times a day, 0 Refills, Maintenance, 02/16/19 11:02:03 EDT Start Date: 02/16/19 Status: Ordered MiraLax oral powder for reconstitution = 17 Gm, By Mouth, Daily, dissolve in 4 to 8 oz of beverage, # 238 Gm, 0 Refills, Maintenance, 11/29/23 14:01:00 EDT, REC Powder, [facility], Partial fill upon patient request if the prescription is for a schedule II opioid drug., 17 Gm... Start Date: 11/29/23 Status: Ordered oxyCODONE 5 mg oral tablet 5 mg, 1, tablet, By Mouth, Every 6 hours, PRN, # 20 tablet, Refills 0, Tot. Refills 0, Maintenance,for pain, 11/29/23 14:01:00 EDT, Route to Pharmacy Electronically, [facility], Partial fill upon patient request if the prescription is f... Start Date: 11/29/23 Status: Ordered Oxycodone 5mg Oral Tablet (PACU ONLY) 5 mg, Tablet, By Mouth, Once, in PACU ONLY, PRN for Pain , Moderate, Routine, 11/29/23 13:42:00 EDT Start Date: 11/29/23 Stop Date: 11/29/23 Status: Completed zinc (as gluconate) 50 mg oral tablet [...] Range]: 1 2 3 Height 165 cm (11/29/23 11:29 AM) 165 cm (11/26/23 9:21 AM) Weight 79.2 kg (11/29/23 11:29 AM) 78.3 kg (11/26/23 9:21 AM) Oxygen Saturation [94-100 %] 94 % (11/29/23 3:45 PM) 95 % (11/29/23 3:30 PM) 99 % (11/29/23 3:15 PM) Pulse Rate [55-90 bpm] 69 bpm (11/29/23 11:29 AM) Body Mass Index [18.5-24.99 kg/m2] 29.09 kg/m2 *H* (11/29/23 11:29 AM) 28.76 kg/m2 *H* (11/26/23 9:21 AM) Blood Pressure [90-138/55-84 mm Hg] 124/69mm Hg (11/29/23 3:45 PM) 127/64mm Hg (11/29/23 3:30 PM) 135/72mm Hg (11/29/23 3:15 PM) Respiratory Rate [16-30 br/min] 14 br/min *L* (11/29/23 4:02 PM) 15 br/min *L* (11/29/23 3:45 PM) 14 br/min *L* (11/29/23 3:30 PM) Temperature [96.8-100.4 DegF] 97.9 DegF (11/29/23 3:30 PM) 97.7 DegF (11/29/23 2:00 PM) 98.1 DegF (11/29/23 11:29 AM) Liters per Minute 9 L/min (11/29/23 2:00 PM) Mode of Delivery (Oxygen) Room air (11/29/23 5:00 PM) Room air (11/29/23 3:30 PM) Blow by (11/29/23 3:00 PM) Blood pressure sites Arm, right (11/29/23 2:00 PM) Arm, right (11/29/23 11:29 AM) Temperature Route Temporal (11/29/23 3:30 PM) Temporal (11/29/23 2:00 PM) Temporal (11/29/23 11:29 AM) Dry Weight 79.2 kg (11/29/23 11:29 AM) 78.3 kg (11/26/23 9:21 AM) Weight Obtained Via Standing scale (11/29/23 11:29 AM) Patient/family stated (11/26/23 9:21 AM) Dry Weight Obtained Via Standing scale (11/29/23 11:29 AM) Patient/family stated (11/26/23 9:21 AM) Social History Social History Type Response Smoking Status Former smoker, quit more than 30 days ago entered on: 03/04/22 Sex Note * Mckenna Dash RN: PERFORM Event Display: Discharge/Transfer Note Hospital Authored Date: [id number] Nursing Discharge Note Entered On: 11/29/2023 17:03 EDT Performed On: 11/29/2023 17:03 EDT by Mckenna Dash RN Nursing Discharge Note 2 Discharge Time : 11/29/2023 17:03 EDT Discharge Level of Care at Discharge : Home/Longterm/Foster Care Patient Left Unit Via : Wheelchair Patient Accompanied Off Unit with : Responsible adult DC Instructions Provided & Signed by Pt : Yes Patient Understands D/C Instructions : Yes Verbalized Understanding of D/C Plan By : Family, Patient Patient Instructions Discharge Signed : Yes Did Pt have Specialty Bed or Wound Vac : No Mckenna Dash RN - 11/29/2023 17:03 EDT * Mckenna Dash RN: PERFORM Event Display: Patient Education/Instruction Authored Date: [id number] Surgery Adult Discharge Instructions [address] [address] Name: ANDRES MILLER : 1950?? Visit: 11/29/2023 11:00?? Current Date: 11/29/2023 15:57 ?? Account: [id number]?? Surgery Discharge Instructions We would like to thank you for allowing us to assist you with your healthcare needs. The following includes patient education materials and information regarding your injury/illness. Our entire staffstrives to provide an excellent experience for our patients and their families. PLEASE ENSURE YOU FOLLOW-UP PER THE INSTRUCTIONS BELOW! ?? YOUR OPINION IS IMPORTANT TO US! Please complete the survey you may receive by mail or email. Your feedback will be used to make improvements to the healthcare experiences of our patients and their families. Surveys are administered by [employer] ?? If further treatment with your primary care physician or another doctor is recommended, it is important for you to keep the appointment. Call your primary care physician or return to the Emergency Department immediately if your condition worsens, fails to improve, or new symptoms develop. If you need to find a doctor, you can call [facility] [employer] for a referral at [phone] or toll free at [phone]) or log in to [email or web address].. ?? [facility], in keeping with [facility] guidance, no longer requires face masks for staff, patientsor visitors in most situations. Similiar to time spent indoors at other locations, there is the chance that you were exposed to repiratory viruses during your time with us (such as flu or COVID-19). If you develop symptoms concerning for a viral respiratory infection, please seek testing (and treatment if indicated) from your medical provider or home test kit. ?? You can view and manage your care through the patient portal or by using a health care mane of your choosing. [employer] is a website that allows you to securely view your medical information including your hospital discharge summary, office visit summaries, medications and follow-up visits. You can also request appointments, renew medications, and request access to your medical information using a health care mane of your choosing, or just ask a question. You are entitled to know the individuals who participated in your treatment. This information is available within your medical record and will be provided upon your request. You can enroll at [email or web address] or register d uring your next office visit. You have been discharged from [facility], Patient Care Unit: [facility]??. If you have any questions regarding these instructions after you leave, please call us and we will be happy to assist you. [facility] Your Care Team Attending Physician Layla Jackson MD?? Consulting Providers Layla Jackson MD?? Discharging Providers Eveline Ferguson MD Reason for Admission RECTOCELE, MIXED URINARYINCONTINENCE Primary Care Provider Hanna HARRISON , Devonte Maldonado? Advance Directive Health Care Proxy on File Yes - Health Care Proxy What to do next Instructions From Your Doctor ?? Orders? 11/29/23 14:00:00 EDT?? Instructions from your Care Team please see MD Jackson instructions for details.?? Tylenol next dose: 6pm as needed Ibuprofen??next dose: 6pm as needed Oxycodone next dose: 10pm as needed. Do not drive while taking oxycodone pain medications.??DO not take them on empty stomach.?? Scheduled Follow-Up Appointments Saturday 1:00 PM EDT ?? With: Manuel HARRISON, Layla Hermosillo Where: [facility] [address] [place] [address] [address] [place] [address]- Status: Pending You Need to Schedule the Following Appointments Follow Up with??Layla Jackson Why: call for follow up and with any concerns Where: [address] [place] [address] [place] [address]- [facility] (1) Follow Up with??Devonte Ferreira MD When:??In 0 days Where: [address] [place] [address]- Business (2) Discharge Medications ANDRES MILLER :1950 Visit Date:11/29/2023 Medications: Please continue your medications until treatment is completed or stopped by your provider. You may resume your daily prescription medications. Discuss any questions related to medications with your provider. What How Much When Instructions Next Dose New Ibuprofen (ibuprofen 600 mg oral tablet) 1 tab(s) Oral 4 times a day as needed for for pain Pickup at [facility] 6pm as needed New Oxycodone (oxyCODONE 5 mg oral tablet) 1 tab(s) Oral Every 6 hours as needed for for pain Pickup at [facility] 10pm as needed New Polyethylene Glycol 3350 (MiraLax oral powder for reconstitution) 17 gram Oral Daily dissolve in 4 to 8 oz of beverage ?? Pickup at [facility] tomorrow Unchanged Aspirin (aspirin 81 mg oral tablet, disintegrating) 1 tab(s) Oral Daily resume per MD recommendation Unchanged Atorvastatin (atorvastatin 40 mg oral tablet) 1 tab(s) Oral Daily resume Unchanged Duloxetine (duloxetine 30 mg oral enteric coated capsule) 1 capsule Oral Daily resume Unchanged Lisinopril (lisinopril 2.5 mg oral tablet) 1 tab(s) Oral Daily resume Unchanged Metformin (metFORMIN 500 mg oral tablet) 1 tab(s) Oral Twice a day resume Unchanged Zinc Gluconate (zinc (as gluconate) 50 mg oral tablet) 1 tab(s) Oral Daily resume Pharmacy Information [facility]: [address] [place], [place] [id number] [phone] Allergies (NKA means No Known Allergies) morphine Zofran Education Materials Below is the list of Educational Leaflet Providered with your Discharge Instructions. [employer] Patient Education - Surgery Medical Daystay Surgical Overnight Discharge Instructions?? [employer] Patient Education - ??NSAID Analgesic Schedule?? Valuables and Belongings I fully understand and agree that [facility] accepts no responsibility for all my personal property including clothing, toilet articles, radios, jewelry, dentures, hearing aids, rings, money, or any other property that is in my possession or is brought to me after admission. I understand certain valuables may be placed in a hospital safe for a short period of time. I understand that the hospital is not liable for loss or damage due to accident, fire, or other natural occurrence while said property is in the safe. I accept full responsibility for any personal property that I keep with me, and will not hold the hospital responsible in case of loss or disappearance. I acknowledge that i have been encouraged to send valuables and belongings home. ?? Date for Pt to Sign Valuables/Belongings: 11/29/23 11:29:00 ?? Valuables & Belongings ?? Clothes Electronic devices Jewelry Monetary Items Personal devices Miscellaneous Medications (Valuables) Valuables at Bedside Pants, Shirt, Shoes, Undergarments ? Valuables Sent Home ? Valuables Sent to Security ? Other Discharge Information ? Pulmonary Rehab Status?? Pulmonary Rehab Discharge Status?? Respiratory Rate:??15 br/min??Low ? Common Emergency Awareness Tips IS IT A STROKE? Act FAST and Check for these signs: FACE Does the face look uneven? ARM Does one arm drift down? SPEECH Does their speech sound strange? TIME Call at any sign of stroke ?? Heart Attack Signs Chest discomfort: Most heart attacks involve discomfort in the center of the chest and lasts more than a few minutes, or goes away and comes back. It can feel like uncomfortable pressure, squeezing, fullness or pain. Discomfort in upper body: Symptoms can include pain or discomfort in one or both arms, back, neck, jaw or stomach. Shortness of breath: With or without discomfort. Other signs: Breaking out in a cold sweat, nausea, or lightheaded. Remember, MINUTES DO MATTER. If you experience any of these heart attack warning signs, call to get immediate medical attention! ?? Smoking can increase your chances of developing chronic health problems and can cause harmful effects to other family members in your house. If you smoke, you are strongly encouraged to quit. Please call [facility] at [phone] or [phone]) or log in to [email or web address] for referrals to smoking cessation programs. ?? The National Suicide Prevention Hotline is available 28/01 if you or someone you know needs to find a reason to keep living. By calling 5-316-070-Sparktrend (9020) you'll be connected to a skilled, trained counselor at a crisis center in your area. SURGERY DISCHARGE INSTRUCTIONS SIGNATURE PAGE ANDRES MILLER Location:[facility] Registration Date and Time:11/29/2023 11:00 EDT Primary Care Physician: Hanna HARRISON , Devonte Maldonado, Attending Physician: Manuel HARRISON, Layla Hermosillo, Mari MILLERNUPURANDRES, have received the above patient education materials/instructions and have verbalized understanding. If ambulance or transport services are being used I further acknowledge being given a choice of service. ?? If you need to contact me, please call me at this number: [phone] . Patient/Telephone Betting Clerk Name: Rajat Kilpatrick Patient/Telephone Betting Clerk Signature: Relationship to Patient: self Witness Name/Signature: Date: 11/29/23 * Mckenna Dash RN: PERFORM, SIGN, VERIFY Event Display: Patient Education Handout Authored Date: [id number] * Mckenna Dash RN: PERFORM Event Display: Patient Education Leaflets Authored Date: Surgery Medical Daystay Surgical Overnight Discharge Instructions ?? 295 Medical Daystay/Surgical Overnight Discharge Instructions ? Since your coordination and judgment may be altered by medication and/or anesthesia, a responsible adult must drive you home from the hospital. ? If you have received medication for pain or sedation while under our care, you should not drive, operate machinery, drink alcohol, or sign any legal documents for 24 hours.?? You should have someone with you at home tonight. ? Remain at home the day of discharge.?? You may be up and about unless otherwise instructed by your physician. ? You may resume your daily prescription medication schedule.?? Any depressant medication should be avoided for 24 hours unless otherwise instructed by your surgeon or anesthesiologist. ? Call your physician for a follow-up appointment.? If you experience unusual or severe pain not relied by your pain medication, excessive bleedingor drainage, persistent nausea and vomiting, excessive swelling or redness, foul odor from incisionsite or fever over 100.6F, you need to call your physician. ? A follow-up phone call by a nurse will be made the day after your procedure.?? If you have stayed with us over night, you will not be receiving a follow-up phone call. ? Nausea and vomiting are a common side effect of prescription pain medication.?? We recommend that pills are not taken on an empty stomach.?? While taking any prescription pain medication you should not drive or drink alcohol. ? * Mckenna Dash RN: PERFORM Event Display: Patient Education Leaflets Authored Date: [id number] NSAID Analgesic Schedule ?? 604 NSAID???s Analgesic Schedule ?? Pain is the primary source of illness following your procedure and can include dehydration, difficulty and painful swallowing, and weight loss. These symptoms can lead to increased post-operative visits and hospital readmission. The best way to control pain is to take pain medications regularly. Your doctor has recommended both Ibuprofen and Acetaminophen (generic/store brands are okay, too). These can be picked up over the counter at your pharmacy of choice. Follow the instructions on the bottle to determine the proper dosage to give. The simplest way to take these medications it to rotate the two at 3-hour intervals. Here is a sample diagram. The time you take your medications may vary from this example. Do not give Ibuprofen more than every 6 hours or Acetaminophen every 4 hours. Do not give Acetaminophen if your doctor has given you a prescription that contains Acetaminophen. ? Patient Care team information Care Team Personnel Name: Devonte Ferreira MD Position: [facility] Outreach Member Role: PCP Address: Address: [address] [place] [address]- Name: Alyson Sellers RN Position: [facility] RN Member Role: Primary Care Nurse Care Team Related Persons Name: ELLA MILLER Address: [employer] Address: home [address] [place] [address] [place] Name: ELLA MILLER Address: home [address] [place] [address]
--- NOTE | 2024-05-07 11:00 | MHC.OFFVIS ---
Vital Signs 05/07/24 11:01 Height 5 ft 5 in Weight 167 lb BMI 27.8 Intake Visit Reasons: 6 month F/U Intake Note: Patient presents for 6 month follow up. Allergies No Known Allergies Allergy (Verified 05/07/24 11:03) Medication List - Last Reconciled 05/07/24 by SHAUNA Frost aspirin 81 mg PO DAILY atorvastatin 40 mg PO BEDTIME 90 days blood-glucose meter,continuous (Dexcom G7 Websphere Administrator) As directed, 999 days blood-glucose sensor (Dexcom G7 Sensor device) As directed, 30 days duloxetine 30 mg PO DAILY lisinopril 2.5 mg PO DAILY metformin 500 mg PO BID 90 days multivitamin 1 tab PO DAILY semaglutide (Ozempic) 0.25 mg (0.368 mL) subcut QWEEK 28 days zinc gluconate 50 mg PO DAILY HPI Comments Details: 73 y/o female patient presents for follow up of sleep study. She had an APR, Advantage Fit midurethral sling, and cystoscopy on 11/29/23 w/o complication w/ Dr Wolf. She is scheduled to see [facility] for right shoulder pain d/t calcium deposit. She is finding her CPAP mask is aggravating her nose, sometimes she wakes up with the mask off. She also notes that she has a left deviated septum, which also makes it difficult to tolerate the mask. If congested, but does use a Rajendra's nasal spray and breathe-right strips which helps her to tolerate her CPAP better. She is also finding the tubing to be annoying, the tubing gets in the way, especially bothersome as she has hot flashes. She uses Zzquil for sleep and pain, resumed recently d/t her shoulder pain and neuropathy in her feet. Uses Duloxetine for hair loss, stress, mood following the loss of her dog a while ago. States her symmetric BLE neuropathy s/s are tingling and numbness- better w/ wearing barefoot style shoes. The home sleep study result was significant for a severe degree of sleep apnea. AHI was 33/hr and oxygen lisa was 74%. Titration study showed breathing and oxygenation stabilized on CPAP at 8cmH2O. The CPAP compliance and therapy response (02/07/24-05/06/24) reviewed. CPAP at 8cmH2O. Overall usage days 91%, usage > 4 hrs 52%. Average usage hours 4 hrs 35 min. The residual AHI was 4.7/hr. [facility] Medical History (Updated 05/07/24 @ 12:59 by SHAUNA Frost) Sleep apnea Cystocele with rectocele Plantar fasciitis Memory loss Hair loss Diabetic neuropathy Wrist pain Shoulder pain Surgical History (Updated 05/07/24 @ 11:05 by TAYLOR Wilburn) H/O rectocele repair H/O: hysterectomy Previous section Family History Father High blood pressure High cholesterol Diabetes Brother Tongue cancer Social History Housing: House Alcohol intake: never Patient Tobacco Use Status: Former Tobacco user e-Cigarette/Vaping Use: Never Used service: No Current occupational status: retired Cognitive needs: No Hearing needs: No Vision needs: No Physical Exam Vital Signs: BMI result Body Mass Index 27.8 Const General: cooperative Orientation/consciousness: patient oriented x3 Resp Effort & Inspection: normal respiratory effort and able to speak in complete sentences Neuro Other: Mild hoarse voice General: patient oriented x3 Gait exam (Neuro): Normal gait present Psych Appearance: grossly normal Mental Status: mental status grossly normal Speech and movement: Normal speech and movement present Affect: normal affect Attitude: cooperative Assessment & Plan Assessment & Plan (1) DAVID (obstructive sleep apnea): Comment: severe degree of sleep apnea. The AHI was 33/hr and oxygen lisa was 74%. Code(s): G47.33 - Obstructive sleep apnea (adult) (pediatric) Category: Medical (2) Diabetic neuropathy: Code(s): E11.40 - Type 2 diabetes mellitus with diabetic neuropathy, unspecified Category: Medical Plan For severe DAVID: Will request new mask fitting and supplies- pt may benefit from mask w/ tubing extending from top of head. Order written. Continue to use CPAP at 8cmH2O- encouraged pt to increase use to > 4 hrs per night. Continue prn nasal spray and breathe-right strips. Will request ENT consult for evaluation of known nasal deviation. For neuropathy: Check labs for common etiologies. Pt has taken zinc on a daily basis for yrs- will check copper level. Will follow-up upon review of above and patient to follow-up in clinic in 6 months or sooner prn. Orders: Orders Vitamin B12 and Folate Today E11.40 - Type 2 diabetes mellitus with diabetic neuropathy, unspecified, R40.0 - Somnolence, R41.3 - Other amnesia Vitamin B6 Today E11.40 - Type 2 diabetes mellitus with diabetic neuropathy, unspecified, R40.0 - Somnolence, R41.3 - Other amnesia Zinc Today E11.40 - Type 2 diabetes mellitus with diabetic neuropathy, unspecified, R40.0 - Somnolence, R41.3 - Other amnesia Copper, serum Today E11.40 - Type 2 diabetes mellitus with diabetic neuropathy, unspecified, R40.0 - Somnolence, R41.3 - Other amnesia TSH reflex Free T4 Today E11.40 - Type 2 diabetes mellitus with diabetic neuropathy, unspecified, R40.0 - Somnolence, R41.3 - Other amnesia Coding Level of Care Code Est Pt Level 4 (38992) Diagnoses DAVID (obstructive sleep apnea) G47.33 Diabetic neuropathy E11.40
[2024-05-07 11:01] VITALS: BMI 27.8
== END 2024-05-07 11:44 | disposition home or self-care (01) ==
LOC: HO.HSMS 10:42
PROVIDERS: PCP Family Medicine; Visit Provider Nurse Practitioner Family
DX: G47.33 Obstructive sleep apnea (adult) (pediatric) (principal); E11.40 Type 2 diabetes mellitus with diabetic neuropathy, unspecified
CPT/HCPCS: 99214

== ENCOUNTER → 2024-05-07 10:42 | Outpatient (BNVA) | payer MEDICARE, SELFPAY | PROVIDERS: PCP Family Medicine; Visit Provider Nurse Practitioner Family | DX: E11.40 Type 2 diabetes mellitus with diabetic neuropathy, unspecified (principal); G47.33 Obstructive sleep apnea (adult) (pediatric); Z99.89 Dependence on other enabling machines and devices | CPT/HCPCS: 99212 ==

== ENCOUNTER 2024-07-22 10:38 | Outpatient (AMB) | payer MEDICARE, SELFPAY ==
--- NOTE | 2024-07-22 10:45 | MHC.PC.OV ---
Vital Signs 07/22/24 10:55 Height 5 ft 5 in Weight 167 lb BMI 27.8 BP 124/72 Blood Pressure Location Rt brachial Position Sitting Respiration 16 Pulse 97 Pulse Source Pulse Oximeter Temp 98.3 F Temp Source Oral Pulse Oximetry (%) 96 Oxygen Delivery Method Room Air Intake Visit Reasons: f/u diabetes, HLD Intake Note: patient here to follow up on diabetes and hld Equip Maint Eng Required: No Is last menstrual period known: No Post menopausal: No Patient : No Allergies ondansetron [From Zofran] Allergy (Severe, Verified 07/22/24 10:54) Anaphylaxis morphine Allergy (Severe, Uncoded 07/22/24 10:54) Anaphylaxis Medication List - Last Reconciled 07/22/24 by Devonte Ferreira MD aspirin 81 mg PO DAILY atorvastatin 40 mg PO BEDTIME 90 days blood-glucose meter,continuous (Dexcom G7 Quality Assurance Supervisor Body) As directed, 999 days blood-glucose sensor (Dexcom G7 Sensor device) As directed, 30 days duloxetine 30 mg PO DAILY lisinopril 2.5 mg PO DAILY metformin 500 mg PO BID 90 days multivitamin 1 tab PO DAILY semaglutide (Ozempic) 0.25 mg (0.368 mL) subcut QWEEK 28 days zinc gluconate 50 mg PO DAILY Tobacco use date assessed: 07/22/24 Fall risk assessment: No Falls in past year Last assessed Fall Risk: 07/22/24 Dental Screening Dental Screen Date: 07/22/24 Did you have a dental visit in the last 12 months?: Yes Did you have a dental problem in the last 6 months where you did not have access to dental care?: No Was dental information given to patient?: Patient has dentist HPI f/u diabetes, HLD HPI Details 74 y/o female presents to f/u diabetes, HLD. A1c today 07/22/24 6.4%. Blood pressure today 124/72, 97p. She is on lisinopril 2.5mg daily. [facility] Medical History (Updated 05/07/24 @ 12:59 by SHAUNA Frost) Sleep apnea Cystocele with rectocele Plantar fasciitis Memory loss Hair loss Diabetic neuropathy Wrist pain Shoulder pain Surgical History (Updated 05/07/24 @ 11:05 by TAYLOR Wilburn) H/O rectocele repair H/O: hysterectomy Previous section Family History Father High blood pressure High cholesterol Diabetes Brother Tongue cancer Social History Housing: House Alcohol intake: never Patient Tobacco Use Status: Former Tobacco user e-Cigarette/Vaping Use: Never Used Patient : No service: No Current occupational status: retired Cognitive needs: No Hearing needs: No Vision needs: No Questionnaire PHQ-9 Over the last 2 weeks, how often have you been bothered by any of the following problems? 1. Little interest or pleasure in doing things: not at all 2. Feeling down, depressed, or hopeless: not at all 3. Trouble falling or staying asleep, or sleeping too much: not at all 4. Feeling tired or having little energy: not at all 5. Poor appetite or overeating: not at all 6. Feeling bad about yourself - or that you are a failure or have let yourself or your family down: not at all 7. Trouble concentrating on things, such as reading the newspaper or watching television: not at all 8. Moving or speaking so slowly that other people could have noticed. Or the opposite - being so fidgety or restless that you have been moving around a lot more than usual: not at all 9. Thoughts that you would be better off or of hurting yourself in some way: not at all Total score: 0 Depression Screening Interpretation: Negative Depression Screening Done: Yes [id number] - PHQ-9 Billing: Yes Source: Developed by Drs. Jax Kaye, Edith Ahn, Mir Moura and colleagues, with an educational anibal from [employer]. Thrive Questionnaire Date Thrive assessed: 07/22/24 I am a: Patient What is your living situation today?: I have a steady place to live Within the past 12 months, did the food you bought not last and you didn't have the money to get more?: Never true Within the past 12 months, did you worry whether your food would run out before you got money to buy more?: Never true Do you have trouble paying for medicines?: No Do you have trouble getting transportation to medical appointments?: No Do you have trouble paying your heating and electricity bill?: No Do you have trouble taking care of your child, family member or friend?: No Do you have trouble with day-to-day activities such as bathing, preparing meals, shopping, managing finances, etc.?: No Are you currently unemployed and looking for a job?: No Are you interested in more education?: No Please select the resources that you would like help with: None Currently or been in a relationship where the following occur: No concerns reported THRIVE Score: 0 AUDIT C Alcohol Use Questionnaire (AUDIT-C) 1. How often do you have a drink containing alcohol?: Never Total Score: 0 Score Reviewed/Action Taken: Yes ADAMA-7 AMB Questionnaire ADAMA-7 Date ADAMA - 7 assessed: 07/22/24 Feeling nervous, anxious, or on edge: 0 = Not at all Not being able to stop or control worryin = Not at all Worrying too much about different things: 0 = Not at all Trouble relaxin = Not at all Being so restless that it is hard to sit still: 0 = Not at all Becoming easily annoyed or irritable: 0 = Not at all Feeling afraid as if something awful might happen: 0 = Not at all Total ADAMA-7 score (0-4 normal; 5-9 mild; 10-14 moderate; 15-21 severe): 0 Source: Developed by Drs. Jax Kaye, Edith Ahn, Mir Moura and colleagues, with an educational anibal from [employer]. Review of Systems Const Denies chills, Denies fatigue, Denies fever(s), Denies headache(s) and Denies weakness ENT Denies dizziness and Denies headache(s) Card Denies chest pain, Denies lightheadedness, Denies dyspnea and Denies other (Palpitations) Resp Denies cough, Denies dyspnea, Denies wheezing and Denies other ( shortness of breath) Musc Denies numbness and Denies tingling Neuro Denies dizziness, Denies headache(s), Denies numbness, Denies tingling, Denies paresthesias and Denies weakness Psych Denies anxiety and Denies depression Endo Denies fatigue Aller/Immun Denies wheezing Physical exam (Primary Care) Vital Signs: Last Vital Signs Temp 98.3 F 07/22/24 10:55 Pulse 97 07/22/24 10:55 Resp 16 07/22/24 10:55 BP 124/72 07/22/24 10:55 Pulse Ox 96 07/22/24 10:55 Oxygen Delivery Method Room Air 07/22/24 10:55 BMI result Body Mass Index 27.8 Tobacco/Smoking Status: Tobacco use Status Tobacco use date assessed 07/22/24 07/22/24 10:58 Patient Tobacco Use Status Former Tobacco user 07/22/24 10:46 e-Cigarette/Vaping Use Never Used 07/22/24 10:46 PHQ-9: PHQ-9 Score PHQ-9: Total score 0 07/22/24 11:08 Depression Screening Interpretation: Negative Thrive Assessment: Date of Thrive Assessment Date Thrive assessed 07/22/24 07/22/24 10:58 Currently or been in a relationship where the following occur: No concerns reported Const General: no acute distress and well developed Nutritional Appearance: well nourished Orientation/consciousness: patient oriented x3 HENMT Head: Yes normocephalic and Yes atraumatic Eyes General: appearance normal, both eyes and all related structures Pupils: Equal, round and reactive pupils present EOM: EOMs intact bilaterally Resp Effort & Inspection: normal respiratory effort Auscultation: clear to auscultation bilaterally Cardio Rate: regular rate Rhythm: regular rhythm Heart sounds: S1 normal heart sound present, S2 normal heart sound present, no gallops, no murmurs and no rubs Neuro General: patient oriented x3 and gait normal Cranial nerves: Yes Equal, round and reactive pupils present Psych Affect: normal affect Coding Level of Care Code Est Pt Level 3 (96663) Diagnoses Diabetes E11.9 Hyperlipidemia E78.5 Essential hypertension I10 Additional Codes PHQ-9 - 42559 - PHQ-9 Billing: Yes ([id number]) Assessment & Plan Assessment & Plan (1) Diabetes: Code(s): E11.9 - Type 2 diabetes mellitus without complications Category: Medical Plan: Patient?has?been?taking?Ozempic?as?prescribed?as?well?metformin A1c?has?improved?and?now?at?6.4%?today.??Goal?is?less?than?7.0% Good?control Recommended?continuing?current?medication?regimen. Patient?notes?that?the?Ozempic?is?costing?her?80?dollars.??She?is?not?sure?she?wants?to?continue?this?indefinitely. For?now?she?will?continue?this?medication?and?we?will?follow-up?at?next?visit. (2) Hyperlipidemia: Code(s): E78.5 - Hyperlipidemia, unspecified Category: Medical Plan: Had?ordered?follow-up?of?lipids?at?last?visit.??Patient?has?not?gotten?labs?drawn?yet. She?does?have?some?labs?ordered?by [facility] to?follow-up?at?her?sleep?medicine?appointment. She?can?get?will?sense?of?labs?drawn?prior?to?her?sleep?medicine?visit. Will?review?lipids?with?her?at?our?next?visit (3) Essential hypertension: Code(s): I10 - Essential (primary) hypertension Category: Medical Plan: Blood?pressure?is?controlled.??Goal?is?less?40/90 Continue?current?medication Medications: Refilled semaglutide (Ozempic) for 4 weeks 0.25 mg (0.368 mL) subcut QWEEK 28 days 1.472 mL 3RF E11.40 - Type 2 diabetes mellitus with diabetic neuropathy, unspecified
[2024-07-22 10:55] VITALS: BP 124/72; PULSE 97; RESP 16; TEMP 36.8; O2SAT 96; BMI 27.8
== END 2024-07-22 11:18 | disposition home or self-care (01) ==
PROVIDERS: PCP Family Medicine; Visit Provider Family Medicine
DX: E11.9 Type 2 diabetes mellitus without complications (principal); E78.5 Hyperlipidemia, unspecified; I10 Essential (primary) hypertension

== ENCOUNTER → 2024-07-22 10:38 | Outpatient (BNVA) | payer MEDICARE, SELFPAY | PROVIDERS: PCP Family Medicine; Visit Provider Family Medicine | DX: E11.40 Type 2 diabetes mellitus with diabetic neuropathy, unspecified (principal); E78.5 Hyperlipidemia, unspecified; I10 Essential (primary) hypertension | CPT/HCPCS: 96127; 99212 ==

== ENCOUNTER 2024-10-19 08:18 | Outpatient (REF) | payer MEDICARE, SELFPAY ==
--- OUTSIDE RECORDS SUMMARY | 2024-10-19 08:40 | XMS_ITS | Clinical Summary ---
Author Organization [address] Address [address] [place] [address] Phone Care Team Providers Care Psych Tech Name Role Phone Devonte Ferreira MD Primary Care Provider Encounters Date Type Department Care Team Description 09/11/2024 Lab Requisition [facility] - Main Lab [address] [facility] [place] [address] Brian España DMD Leukoplakia of oral mucosa, including tongue from Last 3 Months Social History Tobacco Use Types Packs/Day Years Used Date Smoking Tobacco: Never Assessed Comments Unknown Sex and Gender Information Value Date Recorded Sex Assigned at Not on file Legal Sex Female 2:19 AM EST Gender Identity Not on file Sexual Orientation Not on file Last Filed Vital Signs Vital Sign Reading Time Taken Comments Blood Pressure 131/72 11/12/2023 1:18 PM EDT Pulse 88 11/12/2023 1:18 PM EDT Temperature - - Respiratory Rate - - Oxygen Saturation - - Inhaled Oxygen Concentration - - Weight 79.1 kg (174 lb 6.4 oz) 11/12/2023 1:18 P M EDT Height 165.1 cm (5' 5 ) 11/12/2023 1:18 PM EDT Body Mass Index 29.02 11/12/2023 1:18 PM EDT Plan of Treatment Health Maintenance Due Date Last Done Comments Breast Cancer Screening 1950 DTaP,Tdap,and Td Vaccines (1 - Tdap) 1971 Pneumococcal Vaccine: 50+ Ye ars (1 of 2 - PCV) 1971 Zoster Vaccines (1 of 2) 2002 COVID-19 Vaccine (2023-2 5 season) 2024 Colorectal Cancer Screening: Colonoscopy 06/02/2024 Depression Screening 06/02/2024 Falls Risk Assessment 06/02/2024 Hepatitis C Screening 06/02/2024 Medicare Annual Wellness Visit 06/02/2024 Osteoporosis Screening (Bone Density Screening) 06/02/2024 Social Influencers of Health Screening 06/02/2024 Influenza Vaccine (Season Ended) 2025 RSV Immunization Adult Patie nts (1 - 1-dose 75+ series) 2027 HIB Vaccines Aged Out No longer eligi ble based on patient's age to complete this topic HPV Vaccines Aged Out No longer eligi ble based on patient's age to complete this topic Hepatitis A Vaccines Aged Out No long er eligible based on patient's age to complete this topic Hepatitis B Vaccines Aged Out No long er eligible based on patient's age to complete this topic IPV Vaccines Aged Out No longer eligi ble based on patient's age to complete this topic MMR Vaccines Aged Out No longer eligi ble based on patient's age to complete this topic Meningococcal ACWY Vaccine Aged Out N o longer eligible based on patient's age to complete this topic Meningococcal B Vaccine Aged Out No l onger eligible based on patient's age to complete this topic RSV Immunization Patients Un amanuel 20 months Aged Out No longer eligible b ased on patient's age to complete this topic Varicella Vaccines Aged Out No longer eligible based on patient's age to complete this topic Procedures Procedure Name Priority Date/Time Associated Diagnosis Comments TISSUE EXAM Routine 09/10/2024 Leukoplakia of oral mucosa, including tongue from Last 3 Months Results * Tissue Exam (09/10/2024) Final Diagnosis Tongue, left lateral-biopsy: -HYPERKERATOTIC SQUAMOUS HYPERPLASIA -Negative for malignancy -Negative for dysplasia -GMS stains negative for fungi (control appropriate) 5 4:56 PM EDT [facility] Clinical Information Leukoplakia left lateral tongue ,ant. 2/3 weeks duration ? Hyperkeratosis 5 4:56 PM EDT [facility] Gross Description A. Tongue, left lateral tongue: Labeled with the patient's name and information . Received in formalin is a 0.6 cm in greatest diameter white, keratotic shave of epithelial tissue with minimal underlying tissue. The base is inked blue. The specimen is trisected and submitted in entirety in one cassette, three pieces, multiple levels. TS 4:56 PM EDT [facility] Disclaimer NOTE: The immunohistochemical tests and in situ hybridization tests were developed and their performance characteristics were determined by [facility]. They have not been cleared or approved by the U.S. Food and Drug Administration. The FDA has determined that such clearance or approval is not necessary. These tests are used for clinical purposes. They should not be regarded as investigational or for research. This laboratory is certified under the Clinical Laboratory Improvement Amendments of 1988 (CLIA) as qualified to perform high complexity clinical laboratory testing. (controls appropriate) Unless otherwise specified, all tissue is 10% NB formalin fixed and paraffin embedded. 4:56 PM EDT [facility] Tissue Tongue structure / Unknown 09/10/2024 09/11/2024 8:47 AM EST Brian España DMD LAB PATHOLOGY ORDERABLES Kaycee forte Result [facility] [address] [place] [address], from Last 3 Months Insurance [employer]UE [employer]OSS - [place] MEDICARE ADVANTAGE Care Teams Psych Tech Relationship Specialty Start Date End Date Devonte Ferreira MD [address] [place] [address] Dr Mikey [place] PCP - General 11/11/23
--- OUTSIDE RECORDS SUMMARY | 2024-10-19 08:40 | XMS_ITS | Encounter Summary ---
Author Organization [facility] Address [address] [place] [address] Care Team Providers Care Professor Of Journalism Name Role Phone Devonte Ferreira MD Primary Care Provider Encounter Details Date Type Department Care Team (Late st Contact Info) Description 09/11/2024 Lab Requisition [facility] - Main Lab [address] [facility] [place] [id number] Brian España DMD [address] [place] [address] Leukoplakia of oral mucosa, including tongue Social History Tobacco Use Types Packs/Day Years Used Date Smoking Tobacco: Never Assessed Comments Unknown Sex and Gender Information Value Date Recorded Sex Assigned at Not on file Legal Sex Female 2:19 AM EST Gender Identity Not on file Sexual Orientation Not on file documented as of this encounter Plan of Treatment Not on file documented as of this encounter Procedures Procedure Name Priority Date/Time Associated Diagnosis Comments TISSUE EXAM Routine 09/10/2024 Leukoplakia of oral mucosa, including tongue documented in this encounter Results * Tissue Exam (09/10/2024) Final Diagnosis Tongue, left lateral-biopsy: -HYPERKERATOTIC SQUAMOUS HYPERPLASIA -Negative for malignancy -Negative for dysplasia -GMS stains negative for fungi (control appropriate) 5 4:56 PM EDT [email or web address] Clinical Information Leukoplakia left lateral tongue ,ant. 2/3 weeks duration ? Hyperkeratosis 5 4:56 PM EDT [facility] Gross Description A. Tongue, left lateral tongue: Labeled with the patient's name and information . Received in formalin is a 0.6 cm in greatest diameter white, keratotic shave of epithelial tissue with minimal underlying tissue. The base is inked blue. The specimen is trisected and submitted in entirety in one cassette, three pieces, multiple levels. TS 4:56 PM EDT [facility] Disclaimer NOTE: The immunohistochemical tests and in situ hybridization tests were developed and their performance characteristics were determined by [facility]. They have not been cleared [...] fixed and paraffin embedded. 4:56 PM EDT [facility] Tissue Tongue structure / Unknown 09/10/2024 09/11/2024 8:47 AM EST Brian España DMD LAB PATHOLOGY ORDERABLES Kaycee l Result [facility] [address] [place] [address], documented in this encounter Visit Diagnoses Diagnosis Leukoplakia of oral mucosa, including tongue documented in this encounter Care Teams Professor Of Journalism Relationship Specialty Start Date End Date Devonte Ferreira MD [address] [place] [address] Dr Mikey [place] PCP - General 11/11/23 documented as of this encounter
[2024-10-19 12:00] LABS: Alanine Aminotransferase 29 U/L (0-31); Albumin Level 4.1 g/dL (3.5-5.0); Anion Gap 12 (12-20); Aspartate Amino Transferase 30 U/L (5-31); Bilirubin Total 0.8 mg/dL (0.0-1.0); Blood Urea Nitrogen 12 mg/dL (9-16); Calcium 9.4 mg/dL (8.4-10.2); Carbon Dioxide 28 mmol/L (22-29); Chloride 105 mmol/L (96-108); Cholesterol 169 mg/dL (<200); Estimated Glomerular Filt Rate > 60; Glucose Fasting 135 mg/dL (60-99); HDL Cholesterol 58 mg/dL (>40); LDL Cholesterol Calculated 81 mg/dL (<100); Potassium 4.2 mmol/L (3.3-5.1); Sodium 141 mmol/L (135-145); Total Protein 6.9 g/dL (6.5-8.0); Triglycerides 152 mg/dL (<150)
[2024-10-19 12:09] LABS: TSH reflex Free T4 2.01 uIU/mL (0.32-4.0)
[2024-10-19 12:31] LABS: Alkaline Phosphatase 91 U/L (39-117)
[2024-10-19 12:47] LABS: Folate 12.5 ng/mL (> or = 4.0); Vitamin B12 499 pg/mL (200-900)
[2024-10-23 14:43] LABS: Vitamin B6 12.7 ng/mL (2.1-21.7)
== END 2024-10-19 08:19 | disposition home or self-care (01) ==
LOC: HO.WFDLDS 08:18
PROVIDERS: Referring Provider Nurse Practitioner Family; Visit Provider Family Medicine
DX: Z00.00 Encounter for general adult medical examination without abnormal findings (principal); E78.5 Hyperlipidemia, unspecified; E11.40 Type 2 diabetes mellitus with diabetic neuropathy, unspecified; R41.3 Other amnesia; R40.0 Somnolence
CPT/HCPCS: 36415; 80053; 80061; 82607; 82746; 84207; 84443

== ENCOUNTER 2024-10-21 10:41 | Outpatient (AMB) | payer MEDICARE, SELFPAY ==
--- NOTE | 2024-10-21 11:02 | A.OFFPC_ITS ---
Vital Signs 10/21/24 11:07 Height 5 ft 5 in Weight 170 lb 8 oz BMI 28.4 BP 118/70 Blood Pressure Location Lt brachial Position Sitting Respiration 16 Pulse 80 Pulse Source Pulse Oximeter Temp 98.9 F Temp Source Oral Pulse Oximetry (%) 99 Oxygen Delivery Method Room Air Intake Visit Reasons: f/u diabetes, HTN Intake Note: patient is scheduled for follow up dm Baggage Screener Required: No Allergies ondansetron [From Zofran] Allergy (Severe, Verified 10/21/24 11:03) Anaphylaxis morphine Allergy (Severe, Uncoded 07/22/24 10:54) Anaphylaxis Medication List - Last Reconciled 10/21/24 by Devonte Ferreira MD aspirin 81 mg PO DAILY atorvastatin 40 mg PO BEDTIME 90 days blood-glucose sensor (Dexcom G7 Sensor device) As directed, 30 days blood-glucose,machine stoppage frequency checker,cont (Dexcom G7 Scientific Investigator) As directed, 999 days duloxetine 30 mg PO DAILY lisinopril 2.5 mg PO DAILY multivitamin 1 tab PO DAILY zinc gluconate 50 mg PO DAILY Tobacco use date assessed: 07/22/24 Fall risk assessment: No Falls in past year Last assessed Fall Risk: 10/21/24 Dental Screening Dental Screen Date: 07/22/24 HPI f/u diabetes, HTN HPI Details 74 y/o female presents to f/u diabetes, HTN. Blood pressure today 118/70, 80p. She is on lisinopril 2.5mg daily. Last A1c 6.4%. A1c today 10/21/24 is 6.4%. She notes she has stopped taking her ozempic a couple weeks ago and metformin a few days ago. Labs drawn 10/19/24. Reviewed labs with pt. Triglycerides 152. TC 169. LDL 81. HDL 58. PFSH Medical History (Updated 05/07/24 @ 12:59 by SHAUNA Frost) Sleep apnea Cystocele with rectocele Plantar fasciitis Memory loss Hair loss Diabetic neuropathy Wrist pain Shoulder pain Surgical History (Updated 05/07/24 @ 11:05 by TAYLOR Wilburn) H/O rectocele repair H/O: hysterectomy Previous section Family History Father High blood pressure High cholesterol Diabetes Brother Tongue cancer Social History Housing: House Alcohol intake: never Patient Tobacco Use Status: Former Tobacco user e-Cigarette/Vaping Use: Never Used service: No Current occupational status: retired Cognitive needs: No Hearing needs: No Vision needs: No Questionnaire Thrive Questionnaire Date Thrive assessed: 07/15/24 I am a: Patient What is your living situation today?: I have a steady place to live Within the past 12 months, did the food you bought not last and you didn't have the money to get more?: Never true Within the past 12 months, did you worry whether your food would run out before you got money to buy more?: Never true Do you have trouble paying for medicines?: No Do you have trouble getting transportation to medical appointments?: No Do you have trouble paying your heating and electricity bill?: No Do you have trouble taking care of your child, family member or friend?: No Do you have trouble with day-to-day activities such as bathing, preparing meals, shopping, managing finances, etc.?: No Are you currently unemployed and looking for a job?: No Are you interested in more education?: No Please select the resources that you would like help with: None Currently or been in a relationship where the following occur: No concerns reported THRIVE Score: 0 ADAMA-7 AMB Questionnaire ADAMA-7 Date ADAMA - 7 assessed: 07/22/24 Source: Developed by Drs. Jax Kaye, Edith Ahn, Mir Moura and colleagues, with an educational anibal from [employer]. Review of Systems Const Denies chills, Denies fatigue, Denies fever(s), Denies headache(s) and Denies weakness ENT Denies dizziness and Denies headache(s) Card Denies dyspnea Resp Denies cough, Denies dyspnea, Denies wheezing and Denies other (shortness of breath) Musc Denies numbness and Denies tingling Neuro Denies dizziness, Denies headache(s), Denies numbness, Denies tingling and Denies weakness Psych Denies anxiety and Denies depression Endo Denies fatigue Aller/Immun Denies wheezing Physical exam (Primary Care) Vital Signs: Last Vital Signs Temp 98.9 F 10/21/24 11:07 Pulse 80 10/21/24 11:07 Resp 16 10/21/24 11:07 BP 118/70 10/21/24 11:07 Pulse Ox 99 10/21/24 11:07 Oxygen Delivery Method Room Air 10/21/24 11:07 BMI result Body Mass Index 28.4 Tobacco/Smoking Status: Tobacco use Status Tobacco use date assessed 07/22/24 10/21/24 11:04 Patient Tobacco Use Status Former Tobacco user 10/21/24 11:04 e-Cigarette/Vaping Use Never Used 10/21/24 11:04 Thrive Assessment: Date of Thrive Assessment Date Thrive assessed 07/15/24 10/21/24 11:04 Currently or been in a relationship where the following occur: No concerns reported Const General: well developed; No acute distress Nutritional Appearance: well nourished Orientation/consciousness: patient oriented x3 HENMT Head: Yes normocephalic and Yes atraumatic Eyes General: appearance normal, both eyes and all related structures Pupils: Equal, round and reactive pupils present EOM: EOMs intact bilaterally Resp Effort & Inspection: normal respiratory effort Neuro General: patient oriented x3 and gait normal Cranial nerves: Yes Equal, round and reactive pupils present Psych Affect: normal affect Coding Level of Care Code Est Pt Level 4 (96620) Diagnoses Essential hypertension I10 Diabetes E11.9 TIA (transient ischemic attack) G45.9 Hyperlipidemia E78.5 Assessment & Plan Assessment & Plan (1) Essential hypertension: Code(s): I10 - Essential (primary) hypertension Category: Medical Plan: Blood?pressure?is?controlled.??Goal?is?less?than?130/80 Continue?medication?regimen (2) Diabetes: Code(s): E11.9 - Type 2 diabetes mellitus without complications Category: Medical Plan: A1c?shows?good?control. She?had?been?on?metformin?500?mg?b.i.d.?and?also?Ozempic. Patient?recently?stopped?both?as?she?has?decided?she?wants?to?see?if?she?still?n eeds?these?medications. Advised?close?follow-up.??Will?have?her? keep?a?log?of?her?blood?sugars?each?morning. Will?get?her?back?in?about?3-4?weeks?to?review?log?and?recheck?A1c. (3) TIA (transient ischemic attack): Code(s): G45.9 - Transient cerebral ischemic attack, unspecified Category: Medical Plan: History?of?TIA?and?LDL?cholesterol?that?have?been?above?goal. Patient?recently?stopped?her?atorvastatin. We?discussed?this?and?she?will?resume?atorvastatin?for?now. (4) Hyperlipidemia: Code(s): E78.5 - Hyperlipidemia, unspecified Category: Medical Plan: As?above Medications: Refilled atorvastatin 40 mg PO BEDTIME 90 days 90 tabs 3RF
[2024-10-21 11:07] VITALS: BP 118/70; PULSE 80; RESP 16; TEMP 37.2; O2SAT 99; BMI 28.4
--- OUTSIDE RECORDS SUMMARY | 2024-10-21 12:39 | XMS_ITS | Encounter Summary ---
Author Organization [facility] Address [address] [place] [address] Care Team Providers Care Automatic Brine Mixer Operator Name Role Phone Devonte Ferreira MD Primary Care Provider Encounter Details Date Type Department Care Team (Late st Contact Info) Description 09/11/2024 Lab Requisition [facility] - Main Lab [address] [facility] [place] [id number] Brian España DMD [address] [place] [address] Leukoplakia of oral mucosa, including tongue Social [...] fungi (control appropriate) 5 4:56 PM EDT [facility] Clinical Information Leukoplakia left lateral tongue ,ant. 2/3 weeks duration ? Hyperkeratosis 5 4:56 PM EDT [facility] Gross Description A. Tongue, left lateral tongue: Labeled with the patient's name and information . Received in formalin is a 0.6 cm in greatest diameter white, keratotic shave of epithelial tissue with minimal underlying tissue. The base is inked blue. The specimen is trisected and submitted in entirety in one cassette, three pieces, multiple levels. TS 4:56 PM EDT [facility] Disclaimer NOTE: The immunohistochemical tests and in situ hybridization tests were developed and their performance characteristics were determined by [facility]. They have not been [...] fixed and paraffin embedded. 4:56 PM EDT [facility] Tissue Tongue structure / Unknown 09/10/2024 09/11/2024 8:47 AM EST Brian España DMD LAB PATHOLOGY ORDERABLES Kaycee l Result [facility] [address] [place] [address], documented in this encounter Visit Diagnoses Diagnosis Leukoplakia of oral mucosa, including tongue documented in this encounter Care Teams Automatic Brine Mixer Operator Relationship Specialty Start Date End Date Devonte Ferreira MD [address] [place] [address] Dr Mikey [place] PCP - General 11/11/23 documented as of this encounter
--- OUTSIDE RECORDS SUMMARY | 2024-10-21 12:39 | XMS_ITS | Clinical Summary ---
Author Organization [address] [facility] Address [address] [place] [address] Phone Care Team Providers Care Mandarin Chinese Teacher Name Role Phone Devonte Ferreira MD Primary Care Provider Encounters Date Type Department Care Team Description 09/11/2024 Lab Requisition [facility] - Main Lab [address] [facility] [place] [address] Brian España DMD Leukoplakia of [...] fungi (control appropriate) 5 4:56 PM [facility]T [facility] Clinical Information Leukoplakia left lateral tongue ,ant. 2/3 weeks duration ? Hyperkeratosis 5 4:56 PM EDT [facility] Gross Description A. Tongue, left lateral tongue: Labeled with the patient's name and information . Received in formalin is a 0.6 cm in greatest diameter white, keratotic shave of epithelial tissue with minimal underlying tissue. The base is inked blue. The specimen is trisected and submitted in entirety in one cassette, three pieces, multiple levels. TS 4:[address] [facility] Disclaimer NOTE: The immunohistochemical tests and in situ hybridization tests were developed and their performance characteristics were determined by [facility]. They have not been [...] fixed and paraffin embedded. 4:[address] [facility] Tissue Tongue structure / Unknown 09/10/2024 09/11/2024 8:47 AM EST Brian España DMD LAB PATHOLOGY ORDERABLES Kaycee forte Result [facility] [address] [place] [address], from Last 3 Months Insurance [employer] - [place] MEDICARE ADVANTAGE Care Teams Mandarin Chinese Teacher Relationship Specialty Start Date End Date Devonte Ferreira MD [address] [place] [address] Dr Mikey [place] PCP - General 11/11/23
--- OUTSIDE RECORDS SUMMARY | 2024-10-21 12:39 | XMS_ITS | Data Portability ---
Author Organization [facility], [facility] Gregory Address [address] [place] [address] Care Team Providers Care Social Sciences Lecturer Name Role Phone SCOTT DE LA PAZ Primary Care Provider Assessment Encounter Date Assessment Date Assessment LastModified by Organization Details LastModified Time 06/12/2024 06/12/2024 Assessment: Patient presents with signs and symptoms that are consistent with shoulder SADDCE including localized pain, limitations in motion impacting functional activities involving reaching, and decreased strength for performing ADL's. Plan: Continued PT is recommended at 1-2x/week for 4 weeks to decrease pain, improve ROM, increase strength, and optimize shoulder mechanics for functional ADL's. Written HEP given, scanned in to PT chart. Not available 06/12/2024 15:04:20 06/16/2024 06/16/2024 Assessment: Reviewed HEP with pt and corrected technique as indicated. Plan: Continued PT is recommended to decrease pain, improve ROM, increase strength, and optimize shoulder mechanics for functional ADL's. [email or web address] Not available 06/17/2024 18:50:10 06/19/2024 06/19/2024 Assessment: Progressed with further AAROM and AROM left shoulder. Pt with gaining PROM left shoulder with further skilled PT indicated. Plan: Continued PT is recommended to decrease pain, improve ROM, increase strength, and optimize shoulder mechanics for functional ADL's. [email or web address] Not available 06/22/2024 15:37:21 06/29/2024 06/29/2024 Assessment: Patient tolerated UBE and AROM in all planes with good systems mechanic's and no cuing needed for form/posture. Plan: Patient dc/ed to (I) HEP. [email or web address] Not available 06/29/2024 12:10:57 Plan of Treatment Reminders Order Date Submit Date Provider Last Modified By Organization Details Last Modified Time Details Appointments RECHECK 10 2024 10:50A Naeem Medina MD Not available Not available Not available Lab None recorded . Referral None recorded . Procedures None recorded . Surgeries Dequerva in's release (SURG) 2024 025 [email or web address] Not available 10/15/2024 09:03:50 Imaging XR, wrist, 3 or more view - 3v rt wrist, f/u, rm 116 2024 025 [email or web address] Emmanuelle [facility], [address], [place], [address], 10/15/2024 09:03:50 Medication Orders None recorded . Patient TargetsNo targets recorded. Patient Instructions Encounter Date Encounter Id Patient Instructions Last Modified By Organization Details Last Modified Time 06/12/[id number] Goals: 1-2 weeks Pt will have improved PROM in affected shoulder by 20 degrees in flexion, ER by 20 degrees, IR by 20 degrees. Pt will have improved AROM in affected shoulder flexion > 140 degrees. Pt will have constant pain <4/10 in affected shoulder. Pt will sleep 1-2 hours without waking due to sxs from affected shoulder. Pt will drive > 20 minutes before increase in sxs in affected shoulder. Pt will perform ADLs with <4/10 sxs reported in affected shoulder. Pt will initiate given HEP. 3-4 weeks Pt will have PROM and AROM of affected shoulder = to opposite shoulder throughout. Pt will have strength > or = 4/5 throughout affected shoulder. Pt will have intermittent pain <2/10 sxs in affected shoulder. Pt will perform all ADLs with <2/10 sxs in affected shoulder. Pt will drive > 45 minutes with no sxs in affected shoulder. Pt will sleep through PM without waking due to sxs from affected shoulder. Pt will transition to independent HEP. Not available 06/12/2024 15:04:26 Reason for Referral None Reported. Results Created Date Observation Date Name Description Value Unit Range Abnormal Flag Note LastModifiedBy Organization Detail LastModifiedTime 10/15/19 25 10/14/2024 XR, wrist , 3 or more view http:/ [email or web address] ?Encry pted=s hAaTro YD8dLq bEUv6g %2BXZw aYqtaq 0bqfl% 2Fg9IQ a4ajBk vP9nXo QUaueC m3YtLR FvZlgJ JJ8mAn HZtai3 3s7610 AC0KqY 3mGVqa hKiQtr MwF INTERFACE [facility] [address], [place], [address], 10/14/2024 12:52:37 Result Notes None recorded. Problems Name Problem SNOMED Code Status Onset Date Resolution Date Notes Provider Name and Address Organization Details Recorded Time Pain of right shoulder joint 1010330728630 9100 Active 2023 ANNA [place] [facility] 4 09:07:18 Derangement of right shoulder joint 8199315127890 9105 Active 2023 Steven Medina MD [address], [place], [address] [place] [address] - [facility] 4 11:57:07 Impingement syndrome of right shoulder region 4942967173439 02 Active 2023 RE [place] [facility] 4 16:38:03 Internal impingement of left shoulder 9940305621987 105 Active 2023 RE [place] [facility] 4 16:38:45 Osteoarthri tis of joint of left shoulder region 2138319751054 08 Active 2023 RE [place] [facility] 4 16:38:45 Osteoarthri tis of joint of right shoulder region 4743552182751 00 Active 2023 RE [place] [facility] 4 16:39:26 Internal impingement of right shoulder 9472283930513 107 Active 2023 RE [place] [facility] 4 16:39:26 Pain in right hand 7192594549963 09 Active 2023 RE [place], [facility] 09:54:38 Problem Notes None recorded. Procedures Surgical History Date Name Laterality Status Provider Name and Address Organization Details Recorded Time 06/29/20 56400 Therapeutic Exercise (1:1) completed Enrique Reynolds, CRANE MAN [address], [place], [address], [facility] 06/29/2024 12:11:17 06/19/20 14728 Therapeutic Exercise (1:1) completed Yessicasa Collins, CRANE MAN [address], [place], [address], [facility] 06/22/2024 15:35:44 06/19/20 76390: Hot or Cold Pack completed Yessicasa Collins, CRANE MAN [address], [place], [address], [facility] 06/22/2024 15:35:44 06/19/20 14894: Manual therapy completed Yessicasa Adlerk, CRANE MAN [address], [place], [address], [facility] 06/22/2024 15:35:44 06/16/20 46281 Therapeutic Exercise (1:1) completed Yessicasa Collins, CRANE MAN [address], [place], [address], [facility] 06/17/2024 18:47:53 06/16/20 50550: Hot or Cold Pack completed Yessicasa Adlerk, CRANE MAN [address], [place], [address], [facility] 06/17/2024 18:48:05 06/16/20 15445: Manual therapy completed Yessica Jasak, CRANE MAN [address], [place], [address], [facility] 06/17/2024 18:48:11 06/12/20 52043 Therapeutic Exercise (1:1) completed Shyann Wing, PT [address], [place], [address], [facility] 06/07/2024 19:54:31 06/12/20 24 51658: Low complexity PT Eval completed Shyann Cooney, PT [address], [place], [address], [facility] 06/07/2024 19:54:33 06/03/20 24 JZCelestone Wrist Tendon Inj completed Adan Garcia MD [address], [place], [address], [facility] 06/03/2024 14:58:19 Shoulder Surgery completed MAYNORBry WHEELER [facility] 10/14/2024 12:37:53 Ankle/Foot Surgery completed MAYNORBry WHEELER [facility] 10/14/2024 12:37:53 Hand Surgery completed MAYNORBry WHEELER [facility] 10/14/2024 12:37:53 Other [facility] 10/14/2024 12:37:53 Imaging Results Imaging Date Name Status LastModified by Organiz ation Details LastModified Time 10/14/2024 XR, wrist, 3 or more view completed INTERFACE [facility] [address], [place], [address], 10/14/2024 12:52:37 Procedure Notes None recorded. Medical Equipment None Reported. Allergies Allergen ID Allergen Name Allergen Category Reaction Reaction Severity Criticality Documentation Date Start Date Code Code System Note Provider Name and Address Organization Details Recorded Time 088865 Zofran medicatio n Not available Not available Not available 06/02/2024 78582 RxNorm Flower [place] [facility] 4 10:56:26 611304 morphine medicatio n Not available Not available Not available 06/02/2024 7052 RxNorm Flower [place] [facility] 4 10:56:31 Medications Name Sig Start Date Stop Date Status Note LastModified by Organization Details LastModified Time amoxicillin 500 mg capsule TAKE ONE CAPSULE BY MOUTH THREE TIMES A DAY UNTIL GONE active Not Available Not Available No t Available atorvastati n 40 mg tablet TAKE ONE TABLET BY MOUTH DAILY AT BEDTIME active Not Available Not Available No t Available metformin 500 mg tablet TAKE ONE TABLET BY MOUTH TWICE A DAY active Not Available Not Available No t Available ibuprofen 800 mg tablet TAKE ONE TABLET BY MOUTH EVERY 8 HOURS WITH FOOD OR MILK FOR 7 DAYS 01/13 completed Not Available Not Available Not Available benzonatate 200 mg capsule TAKE ONE CAPSULE BY MOUTH THREE TIMES A DAY FOR 7 DAYS 01/13 completed Not Available Not Available Not Available glipizide ER 5 mg tablet, extended release 24 hr TAKE ONE TABLET BY MOUTH EVERY DAY 01/19 completed Not Available Not Available Not Available acetaminoph en 300 mg-codeine 30 mg tablet TAKE 1 TABLET BY MOUTH EVERY 6 HOURS 01/13 completed Not Available Not Available Not Available minoxidil 2.5 mg tablet Take one half tablet daily 10/09 completed Not Available Not Available Not Available tramadol 50 mg tablet Take 2 tablets every 6 hours by oral route for 7 days. 06/02 completed Not Available Not Available Not Available IBU 600 mg tablet TAKE ONE TABLET BY MOUTH EVERY 6 HOURS NEEDED FOR PAIN active Not Available Not Available No t Available glipizide ER 2.5 mg tablet, extended release 24 hr TAKE ONE TABLET BY MOUTH TWICE A DAY 01/19 completed Not Available Not Available Not Available prednisone 50 mg tablet TAKE ONE TABLET BY MOUTH EVERY DAY FOR 5 DAYS 01/13 completed Not Available Not Available Not Available polyethylen e glycol 3350 17 gram/dose oral powder MIX AND TAKE 17GM BY MOUTH ONCE DAILY. DISSOLVE IN 4 TO 8 OZ OF BEVERAGE 01/13 completed Not Available Not Available Not Available estradiol 0.01% (0.1 mg/gram) vaginal cream APPLY 1GM VAGINALLY AT BEDTIME. USE EVERY NIGHT FOR 2 WEEKS THEN TWICE WEEKLY active Not Available Not Available No t Available methylpredn isolone 4 mg tablets in a dose pack take as directed 06/02 completed Not Available Not Available Not Available albuterol sulfate HFA 90 mcg/actuati on aerosol inhaler INHALE TWO PUFFS BY MOUTH EVERY 4 HOURS NEEDED FOR WHEEZING OR FOR SHORTNESS OF BREATH 01/13 completed Not Available Not Available Not Available lisinopril 2.5 mg tablet TAKE ONE TABLET BY MOUTH EVERY DAY active Not Available Not Available No t Available doxycycline hyclate 100 mg tablet TAKE ONE TABLET BY MOUTH TWICE A DAY 01/13 completed Not Available Not Available Not Available glipizide 5 mg tablet TAKE ONE-HALF TABLET BY MOUTH TWICE A DAY BEFORE MEAL 01/19 completed Not Available Not Available Not Available naproxen 500 mg tablet TAKE ONE TABLET BY MOUTH TWICE A DAY 10/09 completed Not Available Not Available Not Available oxycodone 5 mg tablet TAKE 1-2 TABLETS EVERY 4-6 HOURS NEEDED 05/29 completed Not Available Not Available Not Available Low Dose Aspirin 81 mg tablet,farhat yed release Take 1 tablet every day by oral route. active Not Available Not Available No t Available duloxetine 30 mg capsule,del ayed release TAKE ONE CAPSULE BY MOUTH EVERY DAY active Not Available Not Available No t Available pregabalin Pregabali n 100MG Capsule 06/05 completed Statu s: 'Disc ontin ued'; Not Available Not Available Not Available diclofenac 1 % topical gel APPLY 2 TO 3GM TO HAND 4 TIMES A DAY 01/13 completed Not Available Not Available Not Available oxycodone HCl-oxycodo ne-ASA 1-2 Q 4-6 Hours Prn 1 Q 4-[address] WHILE ON THIS MEDICATIO N 06/05 completed Statu s: 'Disc ontin ued'; Not Available Not Available Not Available Dexcom G7 Plumber Cub DIRECTED active Not Available Not Available No t Available Dexcom G7 Sensor device USE DIRECTED ; CHANGE EVERY 10 DAYS active Not Available Not Available No t Available Ozempic 0.25 mg or 0.5 mg (2 mg/3 mL) subcutaneou s pen injector INJECT 0.25MG INTO THE SKIN ONCE WEEKLY X 4 WEEKS active Not Available Not Available No t Available Vitals Date Recorded Body height Body mass index (BMI) Body weight Provider Name and Address Organization Details Last Updated DateTime 10/14/2024 165.1 cm 29.1 kg/m2 67150.66 g MAYNOR [place] - [facility] 10/14/2024 12:37:59 Social History Question Answer Notes LastModified by Organizat ion Details LastModified Time Tobacco Smoking Status Former Smoker MAYNOR [place] - [facility] 10/14/2024 12:37:52 What Is Your Level Of Alcohol Consumption? None Information not available 04/30/2024 Do You Or Have You Ever Used E-cigarettes Or Vape? Never Used Electronic Cigarettes [email or web address] Information not available 10/14/2024 When Did You Quit Smoking? 11-15yearssinc elastcigarette [email or web address] Information not available 10/14/2024 What Is Your Relationship Status? Information not available 04/30/2024 Do You Use Any Illicit Or Recreational Drugs? No Information not available 04/30/2024 Do You Or Have You Ever Used Any Other Forms Of Tobacco Or Nicotine? No Information not available 04/30/2024 Sex: Unknown Functional Status None recorded. Mental Status None recorded. Family History Nothing Reported. Medical History Condition Response Allergies/Hayfever N Coronary Artery Disease N Anxiety/Depression N Breathing or lung disorders N Emphysema N Nerve Disorders N Thyroid Problems N COPD N Pacemaker N Anemia N Kidney/Bladder Problems N Vascular Disease N Heart Trouble N Heart Attack (NE) N Gastrointestinal Disease N Cholesterol Y Diabetes Y Autoimmune disease N Bleeding Disorder N Inflammatory Joint disease N Orthotics N Arthritis N Seizures/Epilepsy N Blood Clot N AIDS/HIV N Congestive Heart Failure (CHF) N Acid Reflux (GERD) N Cancer N Stroke N Asthma N Circulation Problems N Peripheral Vascular Disease N Sleep Apnea Y Hepatitis N Heart Disease N Rheumatoid Arthritis N Arrhythmia N Pulmonary Embolism N Headaches N Fibromyalgia N Hypertension N Osteoporosis N Gynecological HistoryNo gynecological history recorded. Obstetrics History GPAL:G 0 P 0 0 0 0 Past Encounters Encounter ID Performer Location Encounter Start Date Encounter Closed Date Diagnosis/Indication Diagnosis SNOMED-CT Code Diagnosis ICD10 Code Diagnosis Note [id number] CLAY Arevalo [address] [place] [address] 12/25/2023 08:49:38 01/25/2024 08:44:33 Pain in right hand 7104967117 21024 M79.208 [id number] CLAY Hahn [address] [place] [address] 01/20/2024 09:52:08 02/13/2024 12:27:51 Arthritis of first carpometacarpal joint of right hand 8024117835 902872 M13.633 [id number] Umm Mckenzie, OTR/L,CHT [facility] [address] [place] [address] 01/20/2024 10:43:02 01/20/2024 11:07:14 Osteoarthrosis of the carpometacarpal joint of the thumb 24665031 M18.11 HPI: Patient is a 73-year-ol d diagnosed with right thumb CMC osteoarthr itis. she recently had a trauma to her right thumb and also has a ligmanet and tenodn sprain. The Patient is referred by for a custom thermoplas tic CMC joint and STT joint immobiliza tion orthosis. The purpose, precaution s and plan with the orthosis are discussed with the patient today. The patient understand s that the orthosis will assist to create alignment at the CMC joint, reduce friction and pain and allow for functional use of the hand. Today, a wrist based thumb immobiliza tion orthosis was fabricated . The purpose, precaution s and plan with this orthosis are reviewed with the patient who agrees to the proposed wear schedule. The patient understand s that this is a custom orthosis made of low temp thermoplas tic. Any modificati ons to the orthosis should be done by a Certified Hand Therapist. The patient may call for an appointmen t with me in this office. Or if the patient is receiving hand therapy , the provider at that clinic may adjust the orthosis as needed. The orthosis fabricated today is the appropriat e style for the diagnosis and informatio n provided. A rigid style orthosis is needed to protect the injury site and maintain alignment of the involved structures . [id number] CLAY Diaz 3rd floor [address] [place] [address] 04/30/2024 08:25:17 05/25/2024 09:18:48 Pain of right shoulder joint 2349130204 7081663 M25.511 Derangemen t of right shoulder joint 4874448695 9402899 M24.128 [id number] Steven Medina MD [facility] 2nd floor [address] [place] [address] 05/14/2024 10:41:23 06/15/2024 13:17:09 Pain of right shoulder joint 3501139927 3083048 M25.511 Derangemen t of right shoulder joint 3389751128 3065400 M24.059 [id number] Benjamin Mejia PA-C [facility] [address]nd floor [address] [place] [address] 06/02/2024 10:44:00 06/22/2024 10:32:52 Postoperative visit 153519961 Z48.89 Calcific t endinitis of right shoulder 1196014134 25159 M75.31 [id number] Adan Garcia MD [facility] [address]st [address] [place] [address] 06/03/2024 10:45:41 07/09/2024 10:55:59 Tenosynovitis of right radial styloid 6931202311 0512479 M65.4 [id number] Shyann Cooney, PT [facility] [address] [facility] [place] [address] 06/12/2024 14:16:46 06/12/2024 15:19:46 Impingement syndrome of right shoulder region 2287764761 78016 M75.41 [id number] Shyann Wing, PT [facility] [address] [facility] [place] [address] 06/16/2024 13:14:47 06/16/2024 15:00:12 Impingement syndrome of right shoulder region 9920692775 55501 M75.41 [id number] Shyann Wing, PT [facility] [address] [facility] [place] [address] 06/19/2024 13:46:23 06/19/2024 14:37:50 Impingement syndrome of right shoulder region 4146702396 50000 M75.41 [id number] Shyann Wing, PT [facility] [address] [facility] [place] [address] 06/29/2024 11:11:56 06/29/2024 12:32:55 Impingement syndrome of right shoulder region 5810483729 72031 M75.41 [id number] MD CAROLYN Montanez [address] [place] [address] 10/14/2024 12:29:07 10/14/2024 13:28:51 Pain of right wrist 6680318410 37758 M25.531 Tenosynovi tis of wrist 635105261 M65.839 Health Concerns Section Related Observation LastModified by Organization Detai ls LastModified Time None Recorded Concern Status LastModified by Organization Details LastModified Time None Recorded Advance Directives Directive None Recorded Payers Encounter Date Sequence Insurance Name Policy Number Policy Ortega Covered Member ID Ortega Member ID Guarantor Name 06/12/2024 1 [facility]: MEDICARE PPO BLUE (MEDICARE REPLACEMENT PPO) [id number] Shonna A Osowski [id number] Shonna A Osowski 06/16/2024 1 [facility]: MEDICARE PPO BLUE (MEDICARE REPLACEMENT PPO) [id number] Shonna A Osowski [id number] Shonna A Osowski 06/19/2024 1 [facility]: MEDICARE PPO BLUE (MEDICARE REPLACEMENT PPO) [id number] Shonna A Osowski [id number] Shonna A Osowski 06/29/2024 1 [facility]: MEDICARE PPO BLUE (MEDICARE REPLACEMENT PPO) [id number] Shonna A Osowski [id number] Shonna A Osowski 10/14/2024 1 [facility]: MEDICARE PPO BLUE (MEDICARE REPLACEMENT PPO) [id number] Shonna A Osowski [id number] Shonna A Osowski Notes Date Note Type Note Provider Name and Address Organization Details Recorded Time 06/12/2024 text/html Patient is 74 ye ar old right hand dominant female with history of right shoulder pain, presenting today s/p right SADDCE with debridement of calcium deposit, rotator cuff tendons, scar tissue. Reports mild pain symptoms and is no longer needing medications. Present today with her , Sathya.Current vocational status is retired.Functional limitations include difficulty sleeping, limited shoulder ROM, and difficulty performing independent ADL's such as reaching and lifting.Patient goal is to sleep comfortable and take care of her house like she used to be able to.Pt h/o: DM; hypercholesterolemia; sleep apnea; right hand/wrist pain--currently due to her dog leaning on her wrong; bilateral CTR; cystocele; right foot/ankle surgery 5 years ago approx; rectocele; TIA Shyann Cooney, PT [address], [place], [address], [facility] 06/12/2024 15:04:49 06/16/2024 text/html Pt states that s he has no pain in the shoulder. Yessica Karina, CRANE MAN [address], [place], [address], [facility] 06/17/2024 18:51:01 06/19/2024 text/html Pt states that h er shoulder feels great and she is doing things around the house using her right arm. Yessicasa Collins, CRANE MAN [address], [place], [address], [facility] 06/22/2024 15:38:15 06/29/2024 text/html Pt states feelin g great and that she's ready to be discharged. Enrique Reynolds, CRANE MAN [address], [place], [address], [facility] 06/29/2024 12:13:28 10/14/2024 text/html Diagnosis: De Quervain's tenosynovitis right wrist status post 1 injectionCalcific tendinitis right first dorsal combined The patient presents at her request. She reports that she had 4 months relief with her last injection. She has redeveloped pain along the radial aspect of her wrist she is not interested in another injection. She would like to proceed with surgical intervention. Past family, medical, social history and review of systems has been reviewed, updated and is located in the patient? s chart. Examination: Healthy appearing patient in no apparent distress. Alert and oriented. HEENT: Normocephalic and atraumatic. Heart: Regular rate and rhythm. Lungs: Clear to auscultation bilaterally. Abdomen: Soft and nontender. Neurovascular exam: Intact bilateral upper extremities Extremities: Swelling right first dorsal compartment. Tender to palpation right first dorsal compartment. Provocative testing of the wrist reveals a markedly positive Petros's test. No atrophy in either upper extremity. Brisk capillary refill in all digits X-rays ordered, obtained, and reviewed today at [facility]: PA and lateral and oblique of the right wrist reveals minimal calcific electronic data interchange specialist the radial wrist. Plan: The patient and I discussed her situation at length I offered her repeat corticosteroid injection which she declined. She would prefer to proceed with surgical intervention. We discussed the nature of that surgery and its potential risks including infection, injury to blood vessels, tendons, nerves, subluxation of her tendons and stiffness of her wrist. All her questions were answered. She has consented to a right first dorsal compartment release. Adan Garcia MD [address] [place] [address] [address], [place], [address], [facility] - [facility] 10/14/2024 13:28:48 OBGyn Episode No OBEpisode recorded.
== END 2024-10-21 11:40 | disposition home or self-care (01) ==
LOC: HO.HMCFM 10:42
PROVIDERS: PCP Family Medicine; Visit Provider Family Medicine
DX: I10 Essential (primary) hypertension (principal); E11.9 Type 2 diabetes mellitus without complications; G45.9 Transient cerebral ischemic attack, unspecified; E78.5 Hyperlipidemia, unspecified

== ENCOUNTER → 2024-10-21 10:41 | Outpatient (BNVA) | payer MEDICARE, SELFPAY | PROVIDERS: PCP Family Medicine; Visit Provider Family Medicine | DX: E11.9 Type 2 diabetes mellitus without complications (principal); I10 Essential (primary) hypertension; E78.5 Hyperlipidemia, unspecified; Z86.73 Personal history of transient ischemic attack (TIA), and cerebral infarction without residual deficits; Z79.899 Other long term (current) drug therapy | CPT/HCPCS: 99212 ==

== ENCOUNTER 2025-03-29 13:23 | Outpatient (AMB) | payer MEDICARE, SELFPAY ==
[2025-03-29 14:05] VITALS: BP 120/70; PULSE 82; O2SAT 97; BMI 27.0
--- NOTE | 2025-03-29 14:05 | A.OFFVIS_ITS ---
Vital Signs 03/29/25 14:05 Height 5 ft 5 in Weight 162 lb BMI 27.0 BP 120/70 Position Sitting Pulse 82 Pulse Oximetry (%) 97 Oxygen Delivery Method Room Air Intake Visit Reasons: Follow Up 6mo Intake Note: Patient presents for 6 month follow up. Fruit Thinner Machine Operator Required: No Accompanied by: Spouse Allergies ondansetron (From Zofran) Allergy (Severe, Verified 03/29/25 14:05) Anaphylaxis morphine Allergy (Severe, Uncoded 07/22/24 10:54) Anaphylaxis Medication List - Last Reconciled 03/29/25 by SHAUNA Frost aspirin 81 mg PO DAILY atorvastatin 40 mg PO BEDTIME 90 days blood-glucose sensor (Dexcom G7 Sensor device) As directed, 30 days blood-glucose,director health,cont (Dexcom G7 Rehab Physician) As directed, 999 days lisinopril 2.5 mg PO DAILY metformin 500 mg PO BID 90 days multivitamin 1 tab PO DAILY semaglutide (Ozempic) 0.25 mg (0.368 mL) subcut QWEEK 28 days HPI Comments Details: 73 y/o female patient presents for follow-up of severe obstructive sleep apnea and BLE neuropathy. Patient is accompanied by her . Patient reports that over the last few months, she has not been able to use her CPAP machine due to increased nasal and sinus allergy symptoms. She states she was diagnosed with seasonal and cat/dog allergies approximately 30-40 years ago, and underwent allergy injection therapy. She states she has not had allergy symptoms in a long time; however, now she is having recurrent bothersome nasal and sinus allergy symptoms. She has tried an OTC Arm & Hammer pressurized nasal saline spray, as needed, Nasacort, which has not been effective. Previous trials of Flonase were not tolerated-did not like the smell of this. She does use Vicks nasal spray as needed, with short-term relief. She is curious if she can be referred to see an burr bench operator. Otherwise, denies recent fever, chills, cold or COVID symptoms. She reports her neuropathy symptoms are better during the day, since she started wearing barefoot-style sneakers from [employer]. The only time her neuropathy symptoms affect her feet is at night. She has been trying to sprinkle turmeric on her food, as she heard this could be beneficial. She has thought about trying Nervive Nerve Relief; however, she found it to be a bit expensive. She has not yet done the previously requested serum copper and zinc levels, as the last time she had labs drawn, they told her they could not perform the labs in an outpatient lab location. In the meantime, the patient has paused taking the daily OTC zinc supplement, which she was using to prevent colds. 05/07/2024, previous HPI: She had an APR, Advantage Fit midurethral sling, and cystoscopy on 11/29/23 w/o complication w/ Dr Wolf. She is scheduled to see [facility] for right shoulder pain d/t calcium deposit. She is finding her CPAP mask is aggravating her nose, sometimes she wakes up with the mask off. She also notes that she has a left deviated septum, which also makes it difficult to tolerate the mask. If congested, but does use a Rajendra's nasal spray and breathe-right strips which helps her to tolerate her CPAP better. She is also finding the tubing to be annoying, the tubing gets in the way, especially bothersome as she has hot flashes. She uses Zzquil for sleep and pain, resumed recently d/t her shoulder pain and neuropathy in her feet. Uses Duloxetine for hair loss, stress, mood following the loss of her dog a while ago. States her symmetric BLE neuropathy s/s are tingling and numbness- better w/ wearing barefoot style shoes. The home sleep study result was significant for a severe degree of sleep apnea. AHI was 33/hr and oxygen lisa was 74%. Titration study showed breathing and oxygenation stabilized on CPAP at 8cmH2O. The CPAP compliance and therapy response (02/07/24-05/06/24) reviewed. CPAP at 8cmH2O. Overall usage days 91%, usage > 4 hrs 52%. Average usage hours 4 hrs 35 min. The residual AHI was 4.7/hr. [facility] Medical History (Updated 03/29/25 @ 17:39 by SHAUNA Frost) Sleep apnea Cystocele with rectocele Plantar fasciitis Memory loss Hair loss Diabetic neuropathy Wrist pain Shoulder pain Surgical History H/O rectocele repair H/O: hysterectomy Previous section Family History Father High blood pressure High cholesterol Diabetes Brother Tongue cancer Social History Housing: House Alcohol intake: never Patient Tobacco Use Status: Former Tobacco user e-Cigarette/Vaping Use: Never Used service: No Current occupational status: retired Cognitive needs: No Hearing needs: No Vision needs: No Physical Exam Vital Signs: Last Vital Signs Pulse 82 03/29/25 14:05 BP 120/70 03/29/25 14:05 Pulse Ox 97 03/29/25 14:05 Oxygen Delivery Method Room Air 03/29/25 14:05 BMI result Body Mass Index 27.0 Const General: cooperative Orientation/consciousness: patient oriented x3 Resp Effort & Inspection: normal respiratory effort and able to speak in complete sentences Neuro Other: Mild hoarse voice Audible sinus and nasal congestion General: patient oriented x3 Gait exam (Neuro): Normal gait present Psych Appearance: grossly normal Mental Status: mental status grossly normal Speech and movement: Normal speech and movement present Affect: normal affect Attitude: cooperative Assessment & Plan Assessment & Plan (1) DAVID (obstructive sleep apnea): Comment: severe degree of sleep apnea. The AHI was 33/hr and oxygen lisa was 74%. Code(s): G47.33 - Obstructive sleep apnea (adult) (pediatric) Category: Medical (2) Diabetic neuropathy: Code(s): E11.40 - Type 2 diabetes mellitus with diabetic neuropathy, unspecified Category: Medical Qualifiers: Diabetes mellitus type: type 2 Diabetes mellitus complication detail: with other neurological complication Qualified Code(s): E11.49 - Type 2 diabetes mellitus with other diabetic neurological complication Plan For severe DAVID: We will try to optimize allergy treatment to improve patients' ability to tolerate CPAP therapy. * Resume OTC arm and hammer pressurized saline nasal spray, at least 1-2 sprays into each nostril twice a day. * Followed by OTC Rhinocort/budesonide, one nasal spray into each nostril once a day * Followed by azelastine 137 mcg, 1-2 nasal sprays into each nostril 1-2 times per day. * Advised to blow her nose and wait at least 1-2 minutes in between each nasal spray to optimize effectiveness. * May continue Vicks nasal spray as needed. * Written instructions given to patient * When able, resume CPAP at 8cmH2O nightly > 4 hrs per night. * We will request an allergy and immunology consult. * We will follow up on the previous order for an ENT consult for the evaluation of a known nasal deviation For neuropathy: * Trial alpha lipoic acid 600 mg daily * May continue OTC turmeric daily supplementation * The patient has taken zinc daily for years, though the patient has recently stopped. * We will check serum zinc and copper levels- advised she will need to do this at the [facility] lab. Will follow-up upon review of above and patient to follow-up in clinic in 6 months or sooner prn. Orders: Orders Zinc Today E11.40 - Type 2 diabetes mellitus with diabetic neuropathy, unspecified, L65.9 - Nonscarring hair loss, unspecified Referrals Allergy & Immunology Referral G47.33 - Obstructive sleep apnea (adult) (pediatric), J30.2 - Other seasonal allergic rhinitis Medications: New azelastine administer into each nostril 137 mcg (0.137 mL) intranasal Q12H 8.22 mL 6RF 30 days alpha lipoic acid 600 mg PO DAILY 30 caps 6RF 30 days E11.49 - Type 2 diabetes mellitus with other diabetic neurological complication Coding Level of Care Code Est Pt Level 4 (42174) Diagnoses DAVID (obstructive sleep apnea) G47.33 Other diabetic neurological complication associated with type 2 diabetes mellitus E11.49 Diabetes mellitus type: type 2 Diabetes mellitus complication detail: with other neurological co mplication
== END 2025-03-29 15:45 | disposition home or self-care (01) ==
LOC: HO.HSMS 13:23
PROVIDERS: PCP Family Medicine; Visit Provider Nurse Practitioner Family
DX: G47.33 Obstructive sleep apnea (adult) (pediatric) (principal); E11.49 Type 2 diabetes mellitus with other diabetic neurological complication
CPT/HCPCS: 99214

== ENCOUNTER → 2025-03-29 13:23 | Outpatient (BNVA) | payer MEDICARE, SELFPAY | PROVIDERS: PCP Family Medicine; Visit Provider Nurse Practitioner Family | DX: G47.33 Obstructive sleep apnea (adult) (pediatric) (principal); Z99.89 Dependence on other enabling machines and devices; E11.49 Type 2 diabetes mellitus with other diabetic neurological complication; J30.2 Other seasonal allergic rhinitis | CPT/HCPCS: 99212 ==

== ENCOUNTER 2025-04-07 11:37 | Outpatient (AMB) | payer MEDICARE, SELFPAY ==
--- NOTE | 2025-04-07 11:41 | MHC.PC.OV ---
Vital Signs 04/07/25 11:50 Height 5 ft 5 in Weight 159 lb 4 oz BMI 26.5 BP 110/64 Blood Pressure Location Rt brachial Position Sitting Respiration 16 Pulse 83 Pulse Source Pulse Oximeter Temp 97.2 F Temp Source Temporal Artery Scan Pulse Oximetry (%) 97 Oxygen Delivery Method Room Air Intake Visit Reasons: FU Diabetis Intake Note: Shonna presents in the office today to follow up on her diabetes. Allergies ondansetron (From Zofran) Allergy (Severe, Verified 04/07/25 11:44) Anaphylaxis morphine Allergy (Severe, Uncoded 04/07/25 11:44) Anaphylaxis Medication List - Last Reconciled 04/07/25 by Devonte Ferreira MD aspirin 81 mg PO DAILY atorvastatin 40 mg PO BEDTIME 90 days azelastine 137 mcg (0.137 mL) intranasal Q12H 30 days blood-glucose sensor (Dexcom G7 Sensor device) As directed, 30 days blood-glucose,housekeeping coordinator,cont (Dexcom G7 Tip Puncher) As directed, 999 days estradiol 0.01%(0.1mg/gram) 1 appful vaginal DAILY PRN lisinopril 2.5 mg PO DAILY metformin 500 mg PO BID 90 days multivitamin 1 tab PO DAILY semaglutide (Ozempic) 0.25 mg (0.368 mL) subcut QWEEK 28 days vitamin H07-tfgld acid 0.5-1 mg 1 tab PO DAILY Tobacco use date assessed: 04/07/25 Fall risk assessment: No Falls in past year Last assessed Fall Risk: 04/07/25 Dental Screening Dental Screen Date: 04/07/25 Did you have a dental visit in the last 12 months?: Yes Did you have a dental problem in the last 6 months where you did not have access to dental care?: No Was dental information given to patient?: Patient has dentist HPI FU Diabetis HPI Details 74 y/o female presents to f/u diabetes. A1c today 04/07/25 6.3%. She is on metformin 500mg b.i.d, ozempic 0.25mg. Blood pressure today 110/64, 83p. She is on lisinoppril 2.5mg daily. Reports increased irritability and has been describing bouts of anger towards her . [facility] Medical History (Updated 04/07/25 @ 12:37 by Devonte Ferreira MD) Sleep apnea Cystocele with rectocele Plantar fasciitis Memory loss Hair loss Diabetic neuropathy Wrist pain Shoulder pain Surgical History H/O rectocele repair H/O: hysterectomy Previous section Family History (Updated 04/07/25 @ 11:49 by Kylah Dior CMA) Father High blood pressure High cholesterol Diabetes Brother Tongue cancer Social History (Updated 04/07/25 @ 11:49 by Kylah Dior CMA) Housing: House Alcohol intake: never Patient Tobacco Use Status: Former Tobacco user e-Cigarette/Vaping Use: Never Used Second Hand Smoke Exposure: No service: No Current occupational status: retired Cognitive needs: No Hearing needs: No Vision needs: No Questionnaire Thrive Questionnaire Date Thrive assessed: 07/15/24 I am a: Patient What is your living situation today?: I have a steady place to live Within the past 12 months, did the food you bought not last and you didn't have the money to get more?: Never true Within the past 12 months, did you worry whether your food would run out before you got money to buy more?: Never true Do you have trouble paying for medicines?: No Do you have trouble getting transportation to medical appointments?: No Do you have trouble paying your heating and electricity bill?: No Do you have trouble taking care of your child, family member or friend?: No Do you have trouble with day-to-day activities such as bathing, preparing meals, shopping, managing finances, etc.?: No Are you currently unemployed and looking for a job?: No Are you interested in more education?: No Please select the resources that you would like help with: None Currently or been in a relationship where the following occur: No concerns reported THRIVE Score: 0 ADAMA-7 AMB Questionnaire ADAMA-7 Date ADAMA - 7 assessed: 07/22/24 Source: Developed by Drs. Jax Kaye, Edith Ahn, Mir Moura and colleagues, with an educational anibal from [employer]. Review of Systems Const Denies chills, Denies fatigue, Denies fever(s), Denies headache(s) and Denies weakness ENT Denies dizziness and Denies headache(s) Card Denies dyspnea Resp Denies cough, Denies dyspnea, Denies wheezing and Denies other (shortness of breath) Musc Denies numbness and Denies tingling Neuro Denies dizziness, Denies headache(s), Denies numbness, Denies tingling and Denies weakness Psych Denies anxiety and Denies depression Endo Denies fatigue Aller/Immun Denies wheezing Physical exam (Primary Care) Vital Signs: Last Vital Signs Temp 97.2 F 04/07/25 11:50 Pulse 83 04/07/25 11:50 Resp 16 04/07/25 11:50 BP 110/64 04/07/25 11:50 Pulse Ox 97 04/07/25 11:50 Oxygen Delivery Method Room Air 04/07/25 11:50 BMI result Body Mass Index 26.5 Tobacco/Smoking Status: Tobacco use Status Tobacco use date assessed 04/07/25 04/07/25 11:54 Patient Tobacco Use Status Former Tobacco user 04/07/25 11:49 e-Cigarette/Vaping Use Never Used 04/07/25 11:49 Thrive Assessment: Date of Thrive Assessment Date Thrive assessed 07/15/24 04/07/25 11:43 Currently or been in a relationship where the following occur: No concerns reported Const General: well developed; No acute distress Nutritional Appearance: well nourished Orientation/consciousness: patient oriented x3 HENMT Head: Yes normocephalic and Yes atraumatic Eyes General: appearance normal, both eyes and all related structures Pupils: Equal, round and reactive pupils present EOM: EOMs intact bilaterally Resp Effort & Inspection: normal respiratory effort Neuro General: patient oriented x3 and gait normal Cranial nerves: Yes Equal, round and reactive pupils present Psych Affect: normal affect Results AMB Hemoglobin A1c AMB Hemoglobin A1c 6.3 % Last Edit by Kylah Dior CMA on 04/07/25 12:05 Results Reviewed Results Reviewed: Laboratory Last Values Hgb A1c (Clinic) 6.3 % (4.0-6.0) H 04/07/25 11:56 Coding Level of Care Code Est Pt Level 5 (75694) Diagnoses Diabetes E11.9 Essential hypertension I10 Irritability R45.4 Anxiety F41.9 Assessment & Plan Assessment & Plan (1) Diabetes: Code(s): E11.9 - Type 2 diabetes mellitus without complications Category: Medical Plan: A1c 6.3%. She is taking metformin and Ozempic as prescribed Goal is less than 7% Controlled. Continue current medication regimen Encouraged diabetic diet Encouraged exercise (2) Essential hypertension: Code(s): I10 - Essential (primary) hypertension Category: Medical Plan: Blood pressure is controlled. 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 Refer to the nurse navigator to connect her with a therapist Will try some buspirone for her mood She will return in about 3 months to follow-up diabetes, hypertension and mood disorder with memory changes. See a/P Orders: Orders AMB Hemoglobin A1c Today E11.40 - Type 2 diabetes mellitus with diabetic neuropathy, unspecified, E11.9 - Type 2 diabetes mellitus without complications Comprehensive Dema. Panel Fast Today Z00.00 - Encounter for general adult medical examination without abnormal findings Complete Blood Count Auto Diff Today Z00.00 - Encounter for general adult medical examination without abnormal findings Lipid Panel Today Z00.00 - Encounter for general adult medical examination without abnormal findings TSH reflex Free T4 Today Z00.00 - Encounter for general adult medical examination without abnormal findings UA CC w/rflx Micro + Cult Today Z00.00 - Encounter for general adult medical examination without abnormal findings Microalbumin, Random (w Creat) Today I10 - Essential (primary) hypertension Vitamin D 25-OH Total Today E55.9 - Vitamin D deficiency, unspecified Vitamin B12 and Folate Today E53.8 - Deficiency of other specified B group vitamins Referrals Nurse Navigator Referral F02.A11 - Dementia in other diseases classified elsewhere, mild, with agitation, F41.9 - Anxiety disorder, unspecified, R45.4 - Irritability and anger Medications: New buspirone 5 mg PO BID 60 tabs 0RF 30 days Refilled semaglutide (Ozempic) for 4 weeks 0.25 mg (0.368 mL) subcut QWEEK 1.472 mL 3RF 28 days E11.40 - Type 2 diabetes mellitus with diabetic neuropathy, unspecified
[2025-04-07 11:50] VITALS: BP 110/64; PULSE 83; RESP 16; TEMP 36.2; O2SAT 97; BMI 26.5
--- OUTSIDE RECORDS SUMMARY | 2025-04-07 13:11 | XMS_ITS | Encounter Summary ---
Author Organization [facility] Address [address] [place] [address] Care Team Providers Care Heritage Consultant Name Role Phone Devonte Ferreira MD Primary Care Provider Encounter Details Date Type Department Care Team (Late st Contact Info) Description 09/11/2024 Lab Requisition [facility] - Main Lab [address] [facility] [place] [id number] Brian España DMD [address] [place] [address] Leukoplakia of oral mucosa, including tongue Social [...] fungi (control appropriate) 5 4:56 PM EDT [facility] Clinical Information Leukoplakia left lateral tongue ,ant. 2/3 weeks duration ? Hyperkeratosis 5 4:56 PM EDT [facility] Gross Description A. Tongue, left lateral tongue: Labeled with the patient's name and information . Received in formalin is a 0.6 cm in greatest diameter white, keratotic shave of epithelial tissue with minimal underlying tissue. The base is inked blue. The specimen is trisected and submitted in entirety in one cassette, three pieces, multiple levels. TS 4:56 PM EDT [facility] Disclaimer NOTE: The immunohistochemical tests and in situ hybridization tests were developed and their performance characteristics were determined by [facility]. They have not been [...] fixed and paraffin embedded. 4:56 PM EDT [facility] Tissue Tongue structure / Unknown 09/10/2024 09/11/2024 8:47 AM EST Brian España DMD LAB PATHOLOGY ORDERABLES Kaycee l Result [facility] [address] [place] [address], documented in this encounter Visit Diagnoses Diagnosis Leukoplakia of oral mucosa, including tongue documented in this encounter Care Teams Heritage Consultant Relationship Specialty Start Date End Date Devonte Ferreira MD [address] [place] [address] Dr Mikey [place] PCP - General 11/11/23 documented as of this encounter
--- OUTSIDE RECORDS SUMMARY | 2025-04-07 13:11 | XMS_ITS | Clinical Summary ---
Author Organization [address] Address [address] [place] [address] Phone Care Team Providers Care Copying Machine Repairer Name Role Phone Devonte Ferreira MD Primary Care Provider Social History Tobacco Use Types Packs/Day Years [...] Last Done Comments Breast Cancer Screening 1952 Colorectal Cancer Screening: Colonoscopy 1952 Diabetes: Annual GFR (Glomer ular Filtration Rate) 1952 Diabetes: Annual Foot Exam 1962 Diabetes: Annual Retina Eye Exam 1962 DTaP,Tdap,and Td Vaccines (1 - Tdap) 1971 Pneumococcal Vaccine: 50+ Ye ars (1 of 1 - PCV) 2002 Zoster Vaccines (1 of 2) 2002 Cholesterol Screening (Lipid Panel) 06/02/2024 Falls Risk Assessment 06/02/2024 Hepatitis C Screening 06/02/2024 Medicare Annual Wellness Visit 06/02/2024 Osteoporosis Screening (Bone Density Screening) 06/02/2024 Social Influencers of Health Screening 06/02/2024 Depression Screening 07/08/2024 Diabetes: Annual Urine Albumin-Creatinine Ratio (uACR) 01/15/2025 Diabetes: Blood Sugar Contro l Test (HGBA1C) 01/15/2025 Hypertension/CHF/CAD Annual BMP Blood Test 01/15/2025 COVID-19 Vaccine ( - 2023-2 5 season) 2025 Influenza Vaccine (#1) 2025 RSV Immunization Adult Patie nts (1 [...] on patient's age to complete this topic Insurance [employer]UE [employer] - [place] MEDICARE ADVANTAGE Care Teams Copying Machine Repairer Relationship Specialty Start Date End Date Devonte Ferreira MD [address] [place] [address] Dr Mikey [place] PCP - General 11/11/23
== END 2025-04-07 12:37 | disposition home or self-care (01) ==
LOC: HO.HMCFM 11:38
PROVIDERS: PCP Family Medicine; Visit Provider Family Medicine
DX: E11.40 Type 2 diabetes mellitus with diabetic neuropathy, unspecified (principal)

== ENCOUNTER → 2025-04-07 11:37 | Outpatient (BNVA) | payer MEDICARE, SELFPAY | PROVIDERS: PCP Family Medicine; Visit Provider Family Medicine | DX: E11.40 Type 2 diabetes mellitus with diabetic neuropathy, unspecified (principal); I10 Essential (primary) hypertension; R45.4 Irritability and anger; F41.9 Anxiety disorder, unspecified; E55.9 Vitamin D deficiency, unspecified; E53.8 Deficiency of other specified B group vitamins | CPT/HCPCS: 83036; 99212 ==

== ENCOUNTER 2025-06-17 10:37 | Outpatient (REF) | payer MEDICARE, SELFPAY ==
[2025-06-17 10:59] LABS: MANUAL DIFF FLAG NO
[2025-06-17 11:15] LABS: Hematocrit 43.7 % (37.0-47.0); Hemoglobin 14.1 g/dl (12.0-16.0); Imm Gran Abs Auto 0.02 X10*3/uL (0.00-0.03); Imm Gran Pct Auto 0.3 % (0.0-0.4); Lymphocytes Absolute Auto 1.9 X10*3/uL (1.2-4.9); Mean Corpuscular HGB Conc 32.3 g/dl (31.0-35.0); Mean Corpuscular Hemoglobin 28.5 pg (27.0-33.0); Mean Corpuscular Volume 88.3 fL (80.0-98.0); NRBC Abs Auto 0.000 X10*3/uL (0.0-0.012); NRBC Pct Auto 0.0 /100WBC (0.0-0.2); Platelet Count 229 X10*3/uL (160-400); Red Blood Count 4.95 X10*6/uL (4.20-5.50); White Blood Count 7.5 X10*3/uL (4.8-10.8)
[2025-06-17 12:01] LABS: Alanine Aminotransferase 29 U/L (0-31); Albumin Level 4.6 g/dL (3.5-5.0); Alkaline Phosphatase 89 U/L (39-117); Anion Gap 11 (12-20); Aspartate Amino Transferase 29 U/L (5-31); Blood Urea Nitrogen 16 mg/dL (9-16); Calcium 9.4 mg/dL (8.4-10.2); Carbon Dioxide 28 mmol/L (22-29); Chloride 107 mmol/L (96-108); Cholesterol 184 mg/dL (<200); Estimated Glomerular Filt Rate > 60; HDL Cholesterol 60 mg/dL (>40); Potassium 4.4 mmol/L (3.3-5.1); Sodium 142 mmol/L (135-145); Total Protein 7.2 g/dL (6.5-8.0); Triglycerides 143 mg/dL (<150)
[2025-06-17 12:14] LABS: Appearance Urine Clear; Glucose Urine UA Negative (Negative); PH 7.5 (5.0-9.0); Specific Gravity - Urine 1.025 (1.005-1.025)
[2025-06-17 12:25] LABS: Folate 13.3 ng/mL (> or = 4.0); Vitamin B12 506 pg/mL (200-900)
[2025-06-17 12:40] LABS: Microalbum/Creatinine Ratio Ur 4.1 ug/mg cr (<30)
== END 2025-06-17 10:38 | disposition home or self-care (01) ==
LOC: HO.LAB 10:37
PROVIDERS: PCP Family Medicine; Visit Provider Family Medicine
DX: Z00.00 Encounter for general adult medical examination without abnormal findings (principal); I10 Essential (primary) hypertension; E55.9 Vitamin D deficiency, unspecified; E53.8 Deficiency of other specified B group vitamins
CPT/HCPCS: 36415; 80053; 80061; 81003; 82043; 82306; 82570; 82607; 82746; 84443; 85025